=== PATIENT | male | born 1955 | race Caucasian/White ===

== ENCOUNTER → 2021-01-30 07:50 | Outpatient (BNVA) | payer MEDICARE, SELFPAY | PROVIDERS: Family Provider Family Medicine; PCP Family Medicine; Visit Provider Urology | DX: R31.0 Gross hematuria (principal) | CPT/HCPCS: 81003; 87086; 88112 ==

== ENCOUNTER 2021-02-13 12:55 | Outpatient (CLI) | payer MEDICARE, SELFPAY ==
--- NOTE | 2021-02-13 13:00 | CT_ITS ---
WS: [id number] CT ABDOMEN AND PELVIS WITH AND WITHOUT CONTRAST HISTORY: GROSS HEMATURIA TECHNIQUE: Unenhanced 5 mm axial imaging first performed through the abdomen. Post contrast imaging t hrough the abdomen and pelvis. Oral contrast has not been provided. Sagittal and coronal reformats a re submitted. All CT scans at [facility] use at least one of these dose optimization techniqu es: automated exposure control; mA and/or kV adjustment per patient size (includes targeted exams whe re dose is matched to clinical indication); or iterative reconstruction. CONTRAST: Visipaque 320; 95 mL IV. DLP: 3842.4 mGy.cm COMPARISON: 10/10/2006 Very tiny peripheral calcifications within the lung bases are similar to prior studies. Heart size is normal. Small hiatal hernia. Mild hepatic steatosis. Normal bowel duct and normal portal vein. Gallbladder, pancreas, spleen and a drenal glands are normal. Mild atherosclerotic plaque within the aorta with no aneurysm. RIGHT kidney: 10.2 cm in length. There is a linear calcification within the calyx the mid kidney rain uring 7 mm. Normal enhancement of the kidney. No hydronephrosis or hydroureter. No uroepithelial lesi ons. The contrast is not yet excreted from the kidney. LEFT kidney: 11.6 cm in length. No calcification or obstruction. No enhancing mass. There is a 4 mm c alcification at the LEFT UV junction but not causing any significant obstruction. No adenopathy or ascites. No GI tract obstruction. The appendix has been surgically removed. Urinary bladder is well distended. Very slight encroachment of the bladder by the prostate gland. No adenopat hy or fluid in the pelvis. Mild degenerative disc disease at L4-5 and L5-S1 with hypertrophic endplate osteophytes. CT/CT abdomen pelvis wo/w [id number] IMPRESSION: 1. 4 mm calcification at the LEFT UV junction. Calcification is not causing a significant obstruction of the ureter. 2. No solid renal mass. 3. Status post appendectomy.
[2021-02-13 14:03] LABS: Blood Urea Nitrogen 20 mg/dL (8-23); Glomerular Filtration Rate 50.9 mL/min (90-130)
[2021-02-13] MEDS: iodixanol 320 mg/mL 100mL Btl IV (14:30)
== END 2021-02-13 12:56 | disposition home or self-care (01) ==
LOC: RAD 12:57
PROVIDERS: PCP Family Medicine; Visit Provider Urology
DX: R31.0 Gross hematuria (principal); N20.1 Calculus of ureter; Q42.8 Congenital absence, atresia and stenosis of other parts of large intestine
CPT/HCPCS: 74178; 81003; 82565; 84520

== ENCOUNTER → 2021-07-19 09:48 | Outpatient (BNVA) | payer MEDICARE, SELFPAY | PROVIDERS: PCP Family Medicine; Visit Provider Registered Nurse | DX: E78.5 Hyperlipidemia, unspecified (principal); I10 Essential (primary) hypertension; I25.10 Atherosclerotic heart disease of native coronary artery without angina pectoris; R31.0 Gross hematuria; Z87.442 Personal history of urinary calculi; Z12.5 Encounter for screening for malignant neoplasm of prostate | CPT/HCPCS: 80053; 80061; 85025; G0103 ==

== ENCOUNTER 2021-10-17 13:35 | Outpatient (CLI) | payer MEDICARE, SELFPAY ==
--- NOTE | 2021-10-17 13:15 | XR_ITS ---
WS: [id number] Exam: XR KUB [id number] Date/Time of Exam: 10/17/2021 1:45 PM Reason For Exam: STONES No bowel obstruction or free air. Visualized organ margins are intact. Bony structures appear normal. XR/XR KUB [id number] IMPRESSION: 1. No acute abdominal finding.
== END 2021-10-17 13:36 | disposition home or self-care (01) ==
PROVIDERS: PCP Registered Nurse; Visit Provider Nurse Practitioner Family
DX: R10.9 Unspecified abdominal pain (principal); N20.0 Calculus of kidney; R31.0 Gross hematuria
CPT/HCPCS: 74018; 81003; 99213

== ENCOUNTER 2021-11-08 14:35 | Outpatient (CLI) | payer MEDICARE, SELFPAY ==
--- NOTE | 2021-11-08 16:00 | CTR_ITS ---
PROCEDURE INFORMATION: Exam: CT Abdomen And Pelvis Without Contrast Exam date and time: 11/08/2021 2:46 PM Age: 66 years old Clinical indication: Pain and condition or disease; Kidney or ureter condition; Calculus (stone) in kidney; Abdominal pain; Flank; Right; Prior surgery; Surgery type: Appy; Additional info: Right flank pain, CT abd/pel wo contrast on 10/24/21 prior to his appt in clinic TECHNIQUE: Imaging protocol: Computed tomography of the abdomen and pelvis without contrast. Radiation optimization: All CT scans at this facility use at least one of these dose optimization techniques: automated exposure control; mA and/or kV adjustment per patient size (includes targeted exams where dose is matched to clinical indication); or iterative reconstruction. COMPARISON: CT abdomen pelvis wo/w [id number] 02/13/2021 2:28 PM RADIATION DOSE METRICS: Total DLP (mGy-cm): 1308.21 FINDINGS: Liver: There is a diffuse decrease in hepatic parenchymal density, consistent with mild fatty infiltration. There is no focal abnormality within the liver. Gallbladder and bile ducts: The gallbladder is normal. Pancreas: The pancreas is normal. Spleen: The spleen is normal. Adrenal glands: The adrenal glands are normal. Kidneys and ureters: There is a 4 x 5 x 11 mm sized stone in the distal right ureter proximally 1.5 cm above the right ureterovesical junction. Stone measures up to proximally 1400 Hounsfield units and may be visible on the hobbies and crafts sales representative image. Stomach and bowel: There is no evidence of colitis/diverticulitis. Appendix: Not identified Intraperitoneal space: There is no evidence of free intraperitoneal fluid. Vasculature: There is no evidence of an abdominal aortic aneurysm. Lymph nodes: There is no evidence of lymphadenopathy. Urinary bladder: Unremarkable as visualized. Reproductive: The prostate gland demonstrates nonspecific parenchymal calcifications. The prostate demonstrates mild nonspecific enlargement. The seminal vesicles are normal. Bones/joints: The lumbar spine demonstrates moderate degenerative changes at multiple levels. Soft tissues: There are small bilateral inguinal hernias containing only fat. CT/CT kidney stone [id number] IMPRESSION: 1. Stone in the distal right ureter as described. 2. Fatty liver
== END 2021-11-08 14:36 | disposition home or self-care (01) ==
PROVIDERS: PCP Registered Nurse; Visit Provider Nurse Practitioner Family
DX: R10.9 Unspecified abdominal pain (principal); K76.0 Fatty (change of) liver, not elsewhere classified; N20.1 Calculus of ureter; R31.0 Gross hematuria
CPT/HCPCS: 74176; 81003; 99213

== ENCOUNTER 2021-11-18 06:53 | Emergency (ER) | payer MEDICARE, SELFPAY ==
[2021-11-18] VITALS (11 sets, daily range): BP systolic 131–175; BP diastolic 67–92; PULSE 61–76; RESP 13–18; TEMP 36.5; O2SAT 95–97; BMI 33.0
--- NOTE | 2021-11-18 07:21 | PC.NURSE ---
pt reports he hasn't been able to urinate since yesterday evening. reports he is scheduled for surgery due to kidney stone that is too big to pass.
--- NOTE | 2021-11-18 07:23 | ED_ITS ---
HPI - Male Genitourinary General: Chief complaint: Urogenital-Male Stated complaint: Abd pain and lower back pain Time Seen by Provider: 11/18/21 07:15 History of Present Illness: This patient is a 66 year old male presenting with right sided flank pain and suprapubic pain. He has not been able to urinate since 6 pm last night. He has a large kidney stone on the right and is scheduled to have a stent by Dr. Lala tomorrow. He had not been having any pain until last night when he had a sneezing fit. After that he started having the kidney stone pain and was no longer able to urinate. No fever. He had been having pain, sweating, and has been unable to sleep due to the discomfort. He is not enthused about having a catheter placed. Other medical history is significant for CAD with stents placed years ago . Relieving factors: none Exacerbating factors: none Associated symptoms: Deny nausea or vomiting Review of Systems General: Reports: 10 or more systems reviewed and unremarkable except in HPI and below Const: Reports: diaphoresis; Denies: fever(s), chills, fatigue or malaise Eyes: Denies: change in vision ENMT: Denies: odynophagia Card: Denies: chest pain or swelling of feet/ankles Resp: Denies: dyspnea, productive cough or non-productive cough GI: Denies: abdominal pain, nausea or vomiting : Reports: difficulty urinating, urinary urgency and urinary dribbling Musc: Denies: neck pain or back pain Skin/Breast: Denies: rash Neuro: Denies: headache(s), numbness in extremities or weakness in extremities Lee/Lymph: Denies: easy bruising or easy bleeding PFSH ED PFSH: Medical History Calculus of distal left ureter Coronary artery disease Gross hematuria History of kidney stones Hyperlipidemia Hypertension Family History Mother Hypertension Father , atage 78 Dementia Social History Smoking and tobacco status: never smoked Alcohol intake: never Lives independently: Yes Household members: spouse and family Marital status: Current occupational status: employed 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 [employer] History of recent travel: No Physical Exam Const: COMMON NORMALS: no acute distress, patient oriented x3, no limitations and alert GENERAL APPEARANCE: cooperative and comfortable HENMT: HEAD & SCALP: normal to inspection FACE & SINUS: normal facial exam Eye: GENERAL EYE: appearance normal, both eyes and all related structures Neck/C-Spine: COMMON NORMALS: supple, no meningeal signs and no JVD Chest: COMMONS NORMALS: normal inspection of the chest Resp: COMMON NORMALS: normal respiratory effort, No use of accessory muscles and clear to auscultation bilaterally AUSCULTATION: clear to auscultation b ilaterally Cardio: COMMON NORMALS: no JVD, regular rate, regular rhythm and No murmurs present (Cardio) RATE: regular rate RHYTHM: regular rhythm GI: INSPECTION: Yes normal to inspection AUSCULTATION: Yes normoactive bowel sounds PALPATION: Yes Tenderness to palpation present (GI) (suprapubic) Details: RLQ and RUQ and Yes Bladder palpation abnormal Details: distended and tender : BLADDER/KIDNEY EXAM: Yes Bladder palpation abnormal Back/Pelvis: COMMON NORMALS: thoracic and lumbar spine normal to inspection Extremity: COMMON NORMALS: normal to inspection Neuro: COMMON NORMALS: patient oriented x3, moves all extremities, no focal motor deficits and no sensory deficits noted SENSORIUM/ORIENTATION: Yes alert MENINGEAL SIGNS: Yes no meningeal signs Psych: COMMON NORMALS: mental status grossly normal, cooperative and normal affect Skin: COMMON NORMALS: no rashes or lesions noted and turgor normal GENERAL SKIN EXAM: no rashes or lesions noted and turgor normal Course Vital Signs: Vital signs: Vital Signs Temperature 97.7 F 11/18/21 07:02 Pulse Rate 65 11/18/21 09:34 Respiratory Rate 16 11/18/21 09:40 Blood Pressure 143/76 11/18/21 09:34 Pulse Oximetry 96 11/18/21 09:40 Oxygen Delivery Me thod 11/18/21 07:[address] [facility] - Male Medical Decision Making Urinary retention for 13 hours - patient hesitant to have a catheter, but obvious is in need of one. Will check UA, CBC, CMP for signs of kidney injury, infection. If catheter doesn't completely resolve his pain - will get imaging to locate the stone and consult Dr. Lala. Surprisingly, patient did not have a large amount of urine in the bladder when the biswas was placed. He had no change in pain after the catheter was placed an d was given IV morphine and zofran. He had good relief with that and wanted to go home. CT showed mod to severe hydro and his creatinine is slightly higher than baseline. Discussed with Dr. Lala. Patient will go home with meds for pain and nausea. He insisted on having the catheter out and he understands that he still might have urinary retention, as the stone is still in place. Lab Data : 11/18/21 07:42 11/18/21 07:42 Radiology Impressions Abdomen/Pelvis CT 11/18/21 08:55 IMPRESSION: 1. Obstructive stone in the distal right ureter measuring 0.5 x 1.1 cm. There is moderate to severe right hydronephrosis and hydroureter with perinephric stranding. Punctate nonobstructive left renal stones. 2. The bladder wall is thickened. Considerations include underdistention, partial bladder outlet obstruction or cystitis. Correlate with urinalysis. 3. Hepatomegaly with hepatic steatosis and mild periportal lymphadenopathy. 4. Solid pulmonary nodules measuring up to 3.2 mm. As per Fleischner Society 2017 guidelines for follow-up and management of pulmonary nodules: For patients at low risk (minimal or absent history of smoking and of other known risk factors), no routine follow-up. For patient at high risk (history of smoking or of other known risk factors), recommend optional CT at 12 months. 5. Cardiomegaly with coronary artery disease. 6. Small hiatal hernia. Laboratory Results WBC 9.2 10^3/uL (4.0-10.0) 11/18/21 07:42 RBC 4.40 10^6/uL (4.1-5.3) 11/18/21 07:42 Hgb 13.4 g/dL (11.7-16.6) 11/18/21 07:42 Hct 40.4 % (42.0-52.0) L 11/18/21 07:42 MCV 91.8 fl (80-94) 11/18/21 07:42 MCH 30.5 pg (28.0-34.0) 11/18/21 07:42 MCHC 33.2 g/dL (30.0-36.0) 11/18/21 07:42 RDW 12.9 % (12.1-15.1) 11/18/21 07:42 Plt Count 332 10^3/cmm (130-400) 11/18/21 07:42 MPV 10.3 fL (7.4-10.4) 11/18/21 07:42 Neut % (Auto) 80.9 % 11/18/21 07:42 Lymph % (Auto) 11.7 % 11/18/21 07:42 Harris % (Auto) 5.7 % 11/18/21 07:42 Eos % (Auto) 0.8 % 11/18/21 07:42 Baso % (Auto) 0.5 % 11/18/21 07:42 Neut # (Auto) 7.47 10^3/uL (1.8-7.7) 11/18/21 07:42 Lymph # (Auto) 1.1 10^3/uL (0.8-4.8) 11/18/21 07:42 Harris # (Auto) 0.5 10^3/uL (0.2-0.9) 11/18/21 07:42 Eos # (Auto) 0.1 10^3/uL (0.0-0.8) 11/18/21 07:42 Baso # (Auto) 0.1 10^3/uL (0.0-0.1) 11/18/21 07:42 Nucleated RBC % (auto) 0 % 11/18/21 07:42 Nucleated RBCs # 0.0 /100WBC 11/18/21 07:42 Sodium 142 mmol/L (136-145) 11/18/21 07:42 Potassium 4.2 mmol/L (3.5-5.1) 11/18/21 07:42 Chloride 106 mmol/L (98-107) 11/18/21 07:42 Carbon Dioxide 24 mmol/L (22-29) 11/18/21 07:42 Anion Gap 16.2 (5-19) 11/18/21 07:42 BUN 21 mg/dL (8-23) 11/18/21 07:42 Creatinine 1.7 mg/dL (0.7-1.2) H 11/18/21 07:42 GFR Calculation 40.7 mL/min (90-130) L 11/18/21 07:42 Glucose 107 mg/dL (65-115) 11/18/21 07:42 Calculated Osmolality 297 mOsm/kg (285-295) H 11/18/21 07:42 Calcium 9.0 mg/dL (8.5-10.5) 11/18/21 07:42 Total Bilirubin 0.2 mg/dL (0.15-1.2) 11/18/21 07:42 AST 17 U/L (0-40) 11/18/21 07:42 ALT 17 U/L (0-41) 11/18/21 07:42 Alkaline Phosphatase 49 U/L (40-130) 11/18/21 07:42 Total Protein 6.9 g/dL (6.6-8.7) 11/18/21 07:42 Albumin 4.3 g/dL (3.5-5.2) 11/18/21 07:42 Globulin 2.6 g/dL (1.3-4.6) 11/18/21 07:42 Urine Color Yellow (Yellow) 11/18/21 08:30 Urine Appearance Cloudy (CLEAR) 11/18/21 08:30 Urine pH 5 (5-7) 11/18/21 08:30 Ur Specific Vincent 1.030 (1.005-1.030) 11/18/21 08:30 Urine Protein 1+ (Negative) H 11/18/21 08:30 Urine Glucose (UA) Norm (Normal) 11/18/21 08:30 Urine Ketones 1+ (Negative) H 11/18/21 08:30 Urine Blood 3+ (Negative) H 11/18/21 08:30 Urine Nitrate Negative (Negative) 11/18/21 08:30 Urine Bilirubin Neg (Negative) 11/18/21 08:30 Urine Urobilinogen 1 mg/dL (Negative) H 11/18/21 08:30 Ur Leukocyte Esterase Trace (Negative) H 11/18/21 08:30 Urine RBC Too numerous to cnt /hpf (0-2) H 11/18/21 08:30 Urine WBC 0-4 /hpf (0-5) H 11/18/21 08:30 Ur Squamous Epith Cells 0-4 /hpf (0-5) H 11/18/21 08:30 Calcium Oxalate Crystal 0-4 /hpf H 11/18/21 08:30 Amorphous Sediment Not Reportable 11/18/21 08:30 Urine Bacteria 2+ /hpf (NONE) H 11/18/21 08:[address] Abd/Pel: My impression: large stone distal right ureter with hydronephrosis Discharge Plan Discharge Patient Disposition: Home Clinical Impression: Right ureteral calculus, Right renal stone, Acute urinary retention Condition: Stable Prescriptions: New oxycodone 5 mg tablet 5 mg PO Q4H PRN (Reason: pain) Qty: 10 0RF ondansetron 4 mg tablet,disintegrating 4 mg PO TID PRN (Reason: nausea and vomiting) 3 Days Qty: 10 0RF No Action aspirin 81 mg tablet,delayed release (DR/EC) 81 mg PO DAILY fenofibrate 54 mg tablet 54 mg PO DAILY 90 Days Qty: 90 1RF losartan 50 mg tablet 50 mg PO DAILY 90 Days Qty: 90 1RF lovastatin 10 mg tablet 10 mg PO DAILY 90 Days Qty: 90 1RF nitroglycerin [Nitrostat] 0.4 mg tablet, sublingual 0.4 mg sublingual Q5M PRN (Reason: chest pain) 30 Days Qty: 30 0RF Rx Instructions: do not exceed 3 doses per episode metoprolol succinate 25 mg tablet extended release 24 hr 25 mg PO BID 90 Days Qty: 180 0RF clopidogrel 75 mg tablet 75 mg PO DAILY 90 Days Qty: 90 0RF Rx Instructions: switched pharmacy's called in refills to [facility]. Discharge Orders: Discharge ED (Routine); Ordered 11/18/21 Ordered By: Jessica Quinteros Referrals: Sarthak Rivas, GRIDDLE ATTENDANT [Primary Care Provider] - Discharge Diet: As Directed Discharge Activity: Resume usual activity Patient Instructions: Kidney Stones (ED), Biswas Catheter Placement and Care (ED), Opioid Safety Activity Restrictions/Additional Instructions: Follow previous directions to prepare for your procedure. Use the pain medicine as needed. You may also take tylenol with that medication. Use the nausea medicine as needed as well. Coding Level of Care Code ED Facepiece Line Supervisor for Tia Fwd Exam Comprehensive
[2021-11-18 08:00] LABS: Basophils # 0.1 10^3/uL (0.0-0.1); Basophils % 0.5 %; Eosinophils # 0.1 10^3/uL (0.0-0.8); Eosinophils % 0.8 %; Hematocrit 40.4 % (42.0-52.0); Hemoglobin 13.4 g/dL (11.7-16.6); Lymphocytes # 1.1 10^3/uL (0.8-4.8); Lymphocytes % 11.7 %; Mean Corpuscular HGB Conc 33.2 g/dL (30.0-36.0); Mean Corpuscular Hemoglobin 30.5 pg (28.0-34.0); Mean Corpuscular Volume 91.8 fl (80-94); Mean Platelet Volume 10.3 fL (7.4-10.4); Monocytes # 0.5 10^3/uL (0.2-0.9); Monocytes % 5.7 %; Neutrophils # 7.47 10^3/uL (1.8-7.7); Neutrophils % 80.9 %; Nucleated Red Blood Cells % 0 %; Platelet Count 332 10^3/cmm (130-400); Red Cell Distribution Width 12.9 % (12.1-15.1); White Blood Count 9.2 10^3/uL (4.0-10.0)
[2021-11-18] MEDS: sodium chloride 0.9% 1,000 ML 999 ML IV (08:21)
[2021-11-18 08:22] LABS: Alanine Aminotransferase 17 U/L (0-41); Albumin Level 4.3 g/dL (3.5-5.2); Alkaline Phosphatase 49 U/L (40-130); Anion Gap 16.2 (5-19); Aspartate Amino Transferase 17 U/L (0-40); Blood Urea Nitrogen 21 mg/dL (8-23); Carbon Dioxide 24 mmol/L (22-29); Chloride 106 mmol/L (98-107); Globulin 2.6 g/dL (1.3-4.6); Glomerular Filtration Rate 40.7 mL/min (90-130); Glucose 107 mg/dL (65-115); Osmolality Calculated 297 mOsm/kg (285-295); Potassium 4.2 mmol/L (3.5-5.1); Sodium 142 mmol/L (136-145); Total Bilirubin 0.2 mg/dL (0.15-1.2); Total Protein 6.9 g/dL (6.6-8.7)
[2021-11-18 08:55] LABS: Urine Color Yellow (Yellow)
--- NOTE | 2021-11-18 08:55 | CTR_ITS ---
PROCEDURE INFORMATION: Exam: CT Abdomen And Pelvis Without Contrast Exam date and time: 11/18/2021 9:11 AM Age: 66 years old Clinical indication: Right and left flank abdominal pain. TECHNIQUE: Imaging protocol: Computed tomography of the abdomen and pelvis without contrast. Radiation optimization: All CT scans at this facility use at least one of these dose optimization techniques: automated exposure control; mA and/or kV adjustment per patient size (includes targeted exams where dose is matched to clinical indication); or iterative reconstruction. COMPARISON: CT kidney stone [id number] 11/08/2021 2:46 PM RADIATION DOSE METRICS: Total DLP (mGy-cm): 929.05 FINDINGS: Lungs: Solid pulmonary nodule in the right middle lobe measuring 2.9 mm (image 2). Solid pulmonary nodule in the right lower lobe measures 3.2 mm. There are multiple calcified granulomata at the lung bases. Coronary arterial calcifications are seen. The heart is enlarged. No pericardial effusion. Small hiatal hernia. Liver: The liver is enlarged measuring 18.8 cm. There is diffuse hepatic steatosis. Gallbladder and bile ducts: The gallbladder is unremarkable. Pancreas: The pancreas is unremarkable. Spleen: The spleen is unremarkable. Adrenal glands: The adrenal glands are unremarkable. Kidneys and ureters: There is an obstructive stone in the distal right ureter measuring 0.5 x 1.1 cm. There is moderate to severe right hydronephrosis and hydroureter with perinephric stranding. Punctate nonobstructive left renal stones. Stomach and bowel: The stomach and small bowel are unremarkable. The colon is unremarkable. Appendix: The appendix is not identified. Intraperitoneal space: No free intraperitoneal air. Vasculature: No abdominal aortic aneurysm. Lymph nodes: A periportal lymph node measures 1.0 x 2.1 cm. Urinary bladder: The bladder wall is thickened. Considerations include underdistention, partial bladder outlet obstruction or cystitis. Correlate with urinalysis. Reproductive: The prostate measures 3.9 x 3.9 cm. Bones/joints: There and moderate degenerative changes are seen in the lumbar spine. No acute fracture is seen. Soft tissues: Small fat containing inguinal and umbilical hernias. CT/CT kidney stone [id number] IMPRESSION: 1. Obstructive stone in the distal right ureter measuring 0.5 x 1.1 cm. There is moderate to severe right hydronephrosis and hydroureter with perinephric stranding. Punctate nonobstructive left renal stones. 2. The bladder wall is thickened. Considerations include underdistention, partial bladder outlet obstruction or cystitis. Correlate with urinalysis. 3. Hepatomegaly with hepatic steatosis and mild periportal lymphadenopathy. 4. Solid pulmonary nodules measuring up to 3.2 mm. As per Fleischner Society 2017 guidelines for follow-up and management of pulmonary nodules: For patients at low risk (minimal or absent history of smoking and of other known risk factors), no routine follow-up. For patient at high risk (history of smoking or of other known risk factors), recommend optional CT at 12 months. 5. Cardiomegaly with coronary artery disease. 6. Small hiatal hernia.
[2021-11-18 08:56] LABS: Add Urine Microscopic? YES; Bilirubin Urine Neg (Negative); Blood Urine 3+ (Negative); Glucose Urine UA Norm (Normal); Ketones Urine 1+ (Negative); Leukocyte Esterase Urine Trace (Negative); Nitrate Urine Negative (Negative); Protein Urine 1+ (Negative); Urine Appearance Cloudy (CLEAR); Urobilinogen Urine 1 mg/dL (Negative); pH Urine 5 (5-7)
[2021-11-18 08:57] LABS: RBC Urine TOO NUMEROUS TO CNT /hpf (0-2); WBC Urine 0-4 /hpf (0-5)
[2021-11-18 08:59] LABS: Bacteria Urine 2+ /hpf; Calcium Oxalate Crystals Urine 0-4 /hpf; Squamous Epithelial Cell Urine 0-4 /hpf (0-5)
[2021-11-18 09:00] LABS: Add Urine Culture? Yes
[2021-11-18] MEDS: ondansetron 2 mg/ML SDV 2 mL 4 MG IVP (09:36)
[2021-11-18] MEDS: morphine 4 mg/mL SDV 1 mL IVP (09:40)
--- NOTE | 2021-11-18 11:41 | PC.NURSE ---
pt reports he does not want the 2nd dose of morphine, that his pain has improved a lot. requesting nurse to remove biswas catheter prior to discharge. ED provider to bedside to educate pt on risks of removing biswas and potentially will need to return to ED due to unable to urinate. pt verbalized understand and continues with request for biswas removal and that he will return to ED if unable to urinate.
--- NOTE | 2021-11-19 05:17 | W.PM.OPSUD ---
Surgery/Procedure H&P Update DATE OF PROCEDURE: November 19, 2021 DATE H&P PERFORMED: 11/08/21 CHANGES TO PREVIOUS DOCUMENTATION: In ED yesterday with increased pain. CT showed new hydro and slightly distal progression. No UTI
== END 2021-11-18 12:03 | disposition home or self-care (01) ==
PROVIDERS: Emergency Provider Emergency Medicine; PCP Registered Nurse
DX: N13.2 Hydronephrosis with renal and ureteral calculous obstruction (principal); R33.9 Retention of urine, unspecified; Z79.82 Long term (current) use of aspirin; Z79.02 Long term (current) use of antithrombotics/antiplatelets
CPT/HCPCS: 51702; 51798; 74176; 80053; 81001; 85025; 87086; 96374; 96375; 99285; J2270; J2405; J7030

== ENCOUNTER 2021-11-19 06:43 | Day surgery (SDC) | payer MEDICARE, SELFPAY ==
[2021-11-16 10:15] VITALS: BMI 30.7
[2021-11-19] VITALS (9 sets, daily range): BP systolic 139–175; BP diastolic 78–101; PULSE 71–78; RESP 16–18; TEMP 36.2–36.5; O2SAT 93–100
--- NOTE | 2021-11-19 06:50 | W.PM.OPSUD ---
Surgery/Procedure H&P Update DATE OF PROCEDURE: November 19, 2021 DATE H&P PERFORMED: 11/08/21 H&P UPDATE INFORMATION: I have reviewed H&P completed within last 30 days, I have examined patient prior to procedure, Changes to prior documentation as noted here and H&P is in [facility] [place] EMR on date indicated PRIMARY INDICATION FOR PROCEDURE: In ER yesterday with severe right flank pain. Stone had moved slightly more distal with new onset of obstruction. Doing better today. No fever or chills. Stone easily visualized on KUB today. Proceed with planned ESWL and stent possible retrograde ureteroscopy PLANNED PROCEDURE: Operation Date: 11/19/21 08:10 Proposed Procedures p CYSTOSCOPY,RIGHT STENT EXTRACORPOREAL SHOCKWAVE LITHOTRIPSY RETROGRADE [id number] MODIFIER 26,N20.1,R31.0(Not Applicable) - Tato Lala MD s Retrograde Pyelogram(Right) - Tato Lala MD s ESWL(Right) - MD maggie Moscoso Ureteral Stent Placement(Right) - Tato Lala MD
--- NOTE | 2021-11-19 06:57 | XR_ITS ---
WS: [id number] Exam: XR KUB [id number] Date/Time of Exam: 11/19/2021 7:02 AM Reason For Exam: Preop ESWL right distal ureteral stone Comparison 10/17/2021. Right pelvic calcifications are noted unchanged since prior study. No bowel obstruction or free air. No sign of organ enlargement. Bony elements are intact. XR/XR KUB [id number] IMPRESSION: 1. Right pelvic calcifications unchanged. 2. No acute abdominal finding.
[2021-11-19] MEDS: sodium chloride 0.9% 1,000 ML 30 ML IV (07:26)
--- NOTE | 2021-11-19 08:16 | ANES.PREANE2 ---
Pre-Anesthetic Assessment Height/Weight: Height 1.8 m Weight 99.79 kg Temp Pulse Resp BP Pulse Ox O2 Del Method 97.7 F 78 16 143/95 95 11/19/21 07:18 11/19/21 07:18 11/19/21 07:18 11/19/21 07:18 11/19/21 07:18 11/19/21 07:18 Preop Diagnosis: Large right distal ureteral stone Operation Date: 11/19/21 08:10 Proposed Procedures p CYSTOSCOPY,RIGHT STENT EXTRACORPOREAL SHOCKWAVE LITHOTRIPSY RETROGRADE [id number] MODIFIER 26,N20.1,R31.0(Not Applicable) - Tato Lala MD s Retrograde Pyelogram(Right) - MD maggie Moscoso ESWL(Right) - Tato Lala MD s Ureteral Stent Placement(Right) - Tato Lala MD Familial anesthetic complications: None Was Beta Inessa taken within 24 hours: Yes Was Clonidine taken within 24 hours: N/A Last intake: Intake Last Liquid Date 11/18/21 Last Liquid Time 18:00 Last Solid Date 11/17/21 Last Solid Time 23:30 Social Tobacco (chews) and No alcohol Exam alert, oriented x 3, clear to auscultation bilaterally and regular rate & rhythm Airway Mallampati: Class IV Dentition: full Comments: Comments: large neck and tongue, poor mouth opening, receding mandbile Pulmonary None reported CV/HEM Coronary Artery Disease (stents > 1 year ago - plavix) and Hypertension Hepatic None reported GI None reported Metabolic Hyperlipidemia [facility] None reported Anesthetic Plan ASA status: 3 Anesthesia: General Risk of > 500 ml blood loss (7ml/kg in children): No Medications/Allergies Home Medications Medication Instructions Recorded Confirmed Last Taken Type aspirin 81 mg tablet,delayed 81 mg PO DAILY 01/16/21 11/16/21 11/16/21 07:00 History release fenofibrate 54 mg tablet 54 mg PO DAILY 90 days #90 tabs 07/19/21 11/19/21 11/17/21 Rx losartan 50 mg tablet 50 mg PO DAILY 90 days #90 tabs 07/19/21 11/19/21 11/17/21 Rx lovastatin 10 mg tablet 10 mg PO DAILY 90 days #90 tabs 07/19/21 11/19/21 11/17/21 Rx nitroglycerin 0.4 mg sublingual 0.4 mg sublingual Q5M PRN chest 07/19/21 11/19/21 Unknown Rx tablet (Nitrostat) pain 30 days #30 tabs metoprolol succinate 25 mg 25 mg PO BID 90 days #180 tabs 10/29/21 11/19/21 11/17/21 Rx tablet,extended release 24 hr clopidogrel 75 mg tablet 75 mg PO DAILY 90 days #90 tabs 11/02/21 11/16/21 11/10/21 Rx ondansetron 4 mg disintegrating 4 mg PO TID PRN nausea and 11/18/21 11/19/21 11/17/21 Rx tablet vomiting 3 days #10 tabs oxycodone 5 mg tablet 5 mg PO Q4H PRN pain #10 tabs 11/18/21 11/19/21 11/17/21 Rx Allergies Allergy/AdvReac Type Severity Reaction Status Date / Time No Known Allergies Allergy Verified 11/08/21 15:40 Current Medications Generic Name Dose Route Start Last Admin Trade Name Freq PRN Reason Stop Dose Admin Sodium Chloride 1,000 mls @ 30 mls/hr 11/19/21 07:00 11/19/21 07:26 Sodium Chloride 0.9% IV 11/20/21 06:59 30 mls/hr .Q24H FABIAN Administration PFSH Anesthesia Medical History Calculus of distal left ureter Coronary artery disease Gross hematuria History of kidney stones Hyperlipidemia Hypertension Family History Mother Hypertension Father , atage 78 Dementia Social History Smoking and tobacco status: never smoked Alcohol intake: never Lives independently: Yes Household members: spouse and family Marital status: Current occupational status: employed 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
--- NOTE | 2021-11-19 08:26 | P.OP_ITS ---
Operative Report Date of procedure: November 19, 2021 Pre-op diagnosis: Large RIGHT distal ureteral stone Post-op diagnosis: Large RIGHT distal ureteral stone Procedure done: 1. Right EXTRACORPOREAL shockwave lithotripsy, distal ureteral stone 2. Cystoscopy, RIGHT: Retrograde ureteropyelogram, ureteroscopy, laser, stent Implants: Right ureteral stent: 7 Brazilian by 28 cm double-pigtail without string Specimens removed/disposition: Stone fragments Pathology: Stone fragments Surgeon: [employer] Conservation Representative: Lithotripsy remote sensing technician: Jean Carmona Urine output: Not measured Complications: None Findings: 1. Anesthesia: General 2. Condition: Normal 3. Disposition: PACU 4. Stone easily identified with fluoroscopy. 3000 shocks administered with apparent fragmentation but there still appeared to be possibly some fragments too large to pass remaining. For this reason a cystoscopy retrograde ureteroscopy laser lithotripsy of remaining fragments was performed. There was a lot of inflammatory changes in the ureter for that reason a stent was left indwelling. We will plan on leaving the stent in for least 2 weeks for healing of this inflamed area Brief History: Mr. Reveles is a very pleasant 66-year-old white male recently diagnosed with hematuria and work-up demonstrated a large stone in the right distal ureter without obstructive changes. He wanted to see if he could pass a stone but failed to do so. Was scheduled for ESWL and stent for today. Yesterday he developed severe right renal colic which was new for the stone. CT scan in the emergency department demonstrated new onset of obstructive changes and the stone had moved slightly distally. He did experience some increasing lower urinary tract symptoms with its new position. Was able to be managed conservatively and is present today for planned procedure of cystoscopy stent ESWL retrograde Procedure: After routine preoperative evaluation examination and obtaining of informed consent he was taken to the operating suite on 11/19/2021 where general anesthesia was administered without difficulty after appropriate timeout was performed, SCDs confirmed to be functioning, preoperative antibiotics administered, beta-марина protocol confirmed. Positioned on the Dornier unit in supine position. The stone was brought into the focal point utilizing biplanar fluoroscopy. Stone was easily identified. Patient was placed in slight Trendelenburg. Shockwave was initiated on the more proximal aspect of the stone and at a low intensity and a rate of 60. The intensity and right were slowly increased. A total of 3000 shocks were administered with position changes as indicated with real-time fluoroscopy. Some change was noted but what remained was not clear to be either a few larger fragments or just encapsulated cluster of small stones trapped in the ureter. Because this was not clear it was decided to proceed with retrograde and possible ureteroscopy. He was then repositioned in dorsolithotomy position paying careful attention to avoiding pressure points. 21 Brazilian cystoscope with 30 degree lens was introduced into urethra meatus and advanced into the bladder under videoscopy. The bladder was systematically examined. There was some blood coming out of the right ureteral orifice as expected. An 8 Brazilian cone-tip catheter was intubated into the right ureteral orifice for right retrograde ureteropyelogram: Contrast was injected which demonstrated normal distal ureter course and caliber with filling defect consistent with what was seen on the fluoroscopy. Proximal to that was still dilated. Flexible tip guidewire was easily advanced up the right ureter bypassing the area of treatment. The distal ureter was then dilated with a 15 Brazilian 4 cm balloon with proximal aspect of the balloon just below the level of the stone. A second guidewire was passed and then a 7 Brazilian offset semirigid ureteroscope was advanced over this wire to the level of the stone fragments and the wire was removed. Most of what was seen were smaller fragments but there appeared to be some larger fragments more proximally. A 365 ?m thulium superpulse laser fiber was utilized to fragment the larger pieces that remained enveloped by the ureter. They were completely fragmented and either flushed from the ureter or removed via grasping forceps. Contrast was then reinjected through the scope. And there was no extravasation. Could not identify any of the other filling defects. The ureteroscope was then removed. Cystoscope was then backloaded over the guidewire. A 7 Brazilian by 28 cm double-pigtail stent was advanced over the guidewire through the cystoscope into appropriate position as confirmed via fluoroscopy and cystoscopy. Stent was confirmed to be draining. Stone fragment were evacuated through the cystoscope Bladder was drained the procedure was completed. He tolerated procedure well without complications and was awakened in the operating room and returned to the recovery room in stable condition. PLANS: 1. Anticipate discharge from outpatient surgery 2. Maintain stent for at least 2 weeks to allow healing of the area where the stone was wedged. We will see him back about that time with a KUB and likely cystoscopy and stent removal.
[2021-11-19] MEDS: levofloxacin-dextrose 5 % 500 MG/100 ML PREMIX 100 MG IV (08:37)
--- NOTE | 2021-11-19 09:28 | SUR.OPER ---
OMNIPAQUE 350MGI/ML LOT [id number] EXP 08/23/24 10ML ADDED TO STERILE FIELD. 2ML USED
--- NOTE | 2021-11-19 11:11 | SUR.PHASEI ---
1111-patient is resting in pacu, simple mask removed on room air. No complaints of nausea or pain at this time.
[2021-11-19] MEDS: oxyCODONE 5 mg IR Tab/Cap PO (11:54)
--- NOTE | 2021-11-19 13:28 | ANE.PACU2 ---
Inpatient post-anesthesia follow up: Airway intact: Yes Vital signs: Temperature 97.1 F Pulse Rate 72 Respiratory Rate 16 Blood Pressure 139/92 Pulse Oximetry 96 Oxygen Delivery Me thod Room Air Oxygen Flow Rate 5 Fraction of Inspir ed Oxygen Hydration adequate: Yes Nausea and vomiting: No Pain level: 1 Mental status: Baseline
== END 2021-11-19 11:58 | disposition home or self-care (01) ==
PROVIDERS: PCP Registered Nurse; Visit Provider Urology
PROC: 0TJB8ZZ Inspection of Bladder, Via Natural or Artificial Opening Endoscopic (ICD-10-PCS; CPT 52000; principal; 2021-11-19 08:10)
PROC: (CPT 74420; 2021-11-19 08:10)
PROC: (CPT 50590; 2021-11-19 08:10)
PROC: (CPT 50605; 2021-11-19 08:10)
PROC: (CPT 50590; 2021-11-19 08:10)
DX: N20.1 Calculus of ureter (principal); I10 Essential (primary) hypertension; E78.5 Hyperlipidemia, unspecified; I25.10 Atherosclerotic heart disease of native coronary artery without angina pectoris; F17.220 Nicotine dependence, chewing tobacco, uncomplicated; Z79.02 Long term (current) use of antithrombotics/antiplatelets; Z79.82 Long term (current) use of aspirin; Z79.891 Long term (current) use of opiate analgesic; Z95.5 Presence of coronary angioplasty implant and graft
CPT/HCPCS: 50590; 52332; 74018; C2625; J1100; J1956; J2405; J2704; J2710; J3010; J3490; J7030

== ENCOUNTER 2021-12-06 09:51 | Outpatient (CLI) | payer MEDICARE, SELFPAY ==
--- NOTE | 2021-12-06 10:05 | XR_ITS ---
WS: [id number] KUB, AP view, 12/06/2021 Clinical Data: STONES Comparison: KUB, 11/19/2021 Findings: No abnormal intraabdominal masses or calcifications are seen. There is no dilatated small bowel or ev idence of obstruction. A right ureteral stent is in good position XR/XR KUB [id number] Impression: Right ureteral stent.
== END 2021-12-06 09:52 | disposition home or self-care (01) ==
LOC: RAD 09:53
PROVIDERS: PCP Registered Nurse; Visit Provider Urology
DX: Z87.442 Personal history of urinary calculi (principal)
CPT/HCPCS: 74018; 99024

== ENCOUNTER → 2021-12-28 11:28 | Outpatient (BNVA) | payer MEDICARE, SELFPAY | PROVIDERS: PCP Registered Nurse; Visit Provider Urology | DX: N20.1 Calculus of ureter (principal); Z96.0 Presence of urogenital implants | CPT/HCPCS: 52310; 99024 ==

== ENCOUNTER → 2022-01-03 09:35 | Outpatient (BNVA) | payer MEDICARE, SELFPAY | PROVIDERS: PCP Registered Nurse; Visit Provider Registered Nurse | DX: E78.5 Hyperlipidemia, unspecified (principal); I10 Essential (primary) hypertension; I25.10 Atherosclerotic heart disease of native coronary artery without angina pectoris | CPT/HCPCS: 80053 ==

== ENCOUNTER → 2022-01-10 09:12 | Outpatient (BNVA) | payer MEDICARE, SELFPAY | PROVIDERS: PCP Registered Nurse; Visit Provider Registered Nurse | DX: R73.9 Hyperglycemia, unspecified (principal) | CPT/HCPCS: 80053; 83036 ==

== ENCOUNTER 2022-04-09 13:59 | Outpatient (CLI) | payer MEDICARE, SELFPAY ==
--- NOTE | 2022-04-09 15:20 | XR_ITS ---
WS: [id number] KUB, AP view, 04/09/2022 Clinical Data: Renal Stone Comparison: KUB, 12/06/2021 Findings: No abnormal intraabdominal masses or calcifications are seen. There is no dilatated small bowel or ev idence of obstruction. Fecal material and bowel gas obscure detail over both kidneys. The right ureteral stent has been lyla rufino. XR/XR KUB [id number] Impression: Negative KUB.
== END 2022-04-09 14:00 | disposition home or self-care (01) ==
PROVIDERS: PCP Registered Nurse; Visit Provider Urology
DX: N20.0 Calculus of kidney (principal); Z87.442 Personal history of urinary calculi
CPT/HCPCS: 74018; 81003; 99213

== ENCOUNTER → 2022-06-25 09:18 | Outpatient (BNVA) | payer MEDICARE, SELFPAY | PROVIDERS: PCP Registered Nurse; Visit Provider Registered Nurse | DX: E78.5 Hyperlipidemia, unspecified (principal); I10 Essential (primary) hypertension; I25.10 Atherosclerotic heart disease of native coronary artery without angina pectoris | CPT/HCPCS: 80053; 80061; 85025 ==

== ENCOUNTER → 2023-08-13 09:39 | Outpatient (BNVA) | payer MEDICARE, SELFPAY | PROVIDERS: PCP Registered Nurse; Visit Provider Registered Nurse | DX: I10 Essential (primary) hypertension (principal); Z13.1 Encounter for screening for diabetes mellitus; E11.9 Type 2 diabetes mellitus without complications | CPT/HCPCS: 80053; 80061; 83036; 85025 ==

== ENCOUNTER 2023-09-01 07:09 | Outpatient (CLI) | payer MEDICARE, SELFPAY ==
--- NOTE | 2023-09-01 | ECG_ITS ---
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 Interpretive Statements NAME OF STUDY: LEXISCAN SESTAMIBI STRESS TEST INDICATION: [Chest Pain, ] Procedure: At the baseline, the blood pressure was 138/94 mmHg with a heart rate of 65 bpm. The electrocardiogram showed normal sinus rhythm, normal axis with normal ST and T's. The Lexiscan was infused over a period of 20 seconds. A total of 0.4 mg of Lexiscan was infused. The stress phase was continued for a total of 5 minutes. Heart rate was at the end of stress phase was 75 bpm and a blood pressure of 134/89 mmHg. The EKG at the peak infusion revealed normal sinus rhythm with no significant ST-T wave changes. Sestamibi was injected 20 seconds after the Lexiscan infusion. Blood pressure at the end of recovery phase was 143/91 mmHg with a heart rate of 71 bpm. Conclusion: 1. Normal EKG response to Lexiscan infusion 2. No Lexiscan induced chest pain or cardiac arrhythmia. 3. Normal blood pressure and heart rate response. 4. Sestamibi/sestamibi perfusion scan pending; see separate report. Electronically Signed On 09-08-2023 9:04:30 CDT by Mani Warren M.D. [email or web address]
[2023-09-01 07:33] VITALS: BMI 33.5
--- NOTE | 2023-09-01 07:39 | NMCV_ITS ---
NM kev perf SPECT r/s* [id number] Shantanu Reveles Age: 68 Gender: M : 1955 Exam Date: 09/01/2023 08:11 Ordering Phys: Sarthak Rivas WELDER EXPLOSION Technologist: JIMMY Davis Exam Location: [facility] Indications: CAD, SOB STRESS TEST Please see separate stress test report in [facility] for full findings IMAGE PROTOCOL Rest/Stress 1 Lexiscan Day Radiopharmaceutical Dose (mCi) Administration Site Administered by Rest: Tc-99m 10.4 IV JIMMY Davis Sestamibi Stress:Tc-99m 32.6 IV JIMMY Davis Sestamibi Rest: 01-Sep-2023 60 Discovery 630 Stress: 01-Sep-2023 30 Discovery 630 0.4mg Lexiscan. Images obtained in supine and prone position. SPECT RESULTS Technical Quality: Good Raw Data Analysis: Normal Image Corrections: No attenuation or motion correction applied Summed Stress Score: 5 Summed Rest Score: 1 Summed Difference Score: 4 PERFUSION FINDINGS There is a medium sized area of partially reversible perfusion defect seen in inferolateral and anterolateral suazo. This is consistent with small area of prior infarct with medium sized area of rohit-infarct ischemia in the left circumflex artery territory. FUNCTIONAL RESULTS (calculated via Gated SPECT) Stress Image LV EF (%): 70 Stress EDV (mL):79 TID: 1.14 Stress ESV (mL):24 FUNCTIONAL FINDINGS: There is normal left ventricular systolic function. IMPRESSIONS 1. Small area of prior infarct with medium sized area of rohit-infarct ischemia seen in the left circumflex artery territory. 2. LV systolic function is normal Mani Warren MD (Electronically Signed) Final Date: 01 September 2023 12:33 S
[2023-09-01] MEDS: regadenoson 0.4 Mg/5 ml Syringe 0.400000000000000022 MG IVP (08:54)
[2023-09-01 09:12] VITALS: BP 143/91; PULSE 73
== END 2023-09-01 07:10 | disposition home or self-care (01) ==
PROVIDERS: PCP Registered Nurse; Visit Provider Registered Nurse
DX: I25.10 Atherosclerotic heart disease of native coronary artery without angina pectoris (principal); R06.02 Shortness of breath; R94.39 Abnormal result of other cardiovascular function study
CPT/HCPCS: 36415; 78452; 93017; A9500; J2785

== ENCOUNTER → 2023-10-13 13:30 | Outpatient (BNVA) | payer MEDICARE, SELFPAY | PROVIDERS: PCP Registered Nurse; Visit Provider Internal Medicine Cardiovascular Disease | DX: R93.1 Abnormal findings on diagnostic imaging of heart and coronary circulation (principal); E78.2 Mixed hyperlipidemia; I10 Essential (primary) hypertension; I25.118 Atherosclerotic heart disease of native coronary artery with other forms of angina pectoris; Z87.442 Personal history of urinary calculi | CPT/HCPCS: 99205 ==

== ENCOUNTER 2023-10-27 16:41 | Outpatient (CLI) | payer MEDICARE, SELFPAY ==
[2023-10-27 17:23] LABS: Basophils % 0.5 %; Eosinophils # 0.1 10^3/uL (0.0-0.8); Hematocrit 44.2 % (37-53); Lymphocytes # 2.1 10^3/uL (0.8-4.8); Lymphocytes % 31.5 %; Mean Corpuscular HGB Conc 34.4 g/dL (30-55); Mean Corpuscular Hemoglobin 31.8 pg (27-33); Mean Corpuscular Volume 92.5 fl (82-101); Mean Platelet Volume 9.8 fL (7.4-10.4); Monocytes # 0.7 10^3/uL (0.2-0.9); Monocytes % 10.8 %; Neutrophils # 3.67 10^3/uL (1.8-7.7); Nucleated Red Blood Cells % 0 %; Platelet Count 302 10^3/cmm (157-399); Red Blood Count 4.78 10^6/uL (3.85-5.65); Red Cell Distribution Width 12.5 % (12.1-15.1); White Blood Count 6.66 10^3/uL (3.29-11.43)
[2023-10-27 17:43] LABS: INR 0.87 (0.8-1.2)
[2023-10-27 17:47] LABS: Troponin T (5th) Once 21 ng/L (0-15)
[2023-10-27 17:52] LABS: Anion Gap 20.1 (5-19); Blood Urea Nitrogen 17 mg/dL (8-23); Calcium 9.3 mg/dL (8.5-10.5); Carbon Dioxide 21 mmol/L (22-29); Chloride 106 mmol/L (98-107); Glomerular Filtration Rate 60.4 mL/min (90-130); Glucose 95 mg/dL (65-115); Osmolality Calculated 297 mOsm/kg (285-295); Potassium 4.1 mmol/L (3.5-5.1); Sodium 143 mmol/L (136-145)
== END 2023-10-27 16:42 | disposition home or self-care (01) ==
LOC: LAB 16:44
PROVIDERS: PCP Registered Nurse; Visit Provider Internal Medicine Cardiovascular Disease
DX: Z79.01 Long term (current) use of anticoagulants (principal); R06.02 Shortness of breath; I48.91 Unspecified atrial fibrillation; I31.9 Disease of pericardium, unspecified
CPT/HCPCS: 80048; 84484; 85025; 85610

== ENCOUNTER 2023-10-29 07:11 | Outpatient (CLI) | payer MEDICARE, SELFPAY ==
[2023-10-29] VITALS (26 sets, daily range): BP systolic 109–170; BP diastolic 75–108; PULSE 60–97; RESP 0–33; TEMP 36.6; O2SAT 94–99; BMI 32.6
--- NOTE | 2023-10-29 07:30 | XACV_ITS ---
Exam Room: 2 Ht: 180 cm Wt: 106 kg BSA: 2.34 m2 Gender: Male : 1955 Any Known Allergies: No known allergies Exam Priority: Routine Procedure(s): Procedure Description: Diagnostic procedure Procedure Description: PCI procedure Procedure Description: Drug Eluting Coronary Stent Procedure Description: PTCA Procedure Description: Miscellaneous Procedure Description: ACT Procedure Description: Pressure Wire David OCASIO; Diagnostic Cath Status: Elective Diagnostic Findings * INDICATION: Dyspnea on exertion/abnormal myocardial perfusion/ Chest pain (CCS class 3 angina). * Left Main has mild luminal irregularities. 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 No significant stenosis. * LAD has patent prior stents. At distal edge of mid LAD stent, patient has a moderate 60% stenosis. * Proximal Circumflex: subtotal 95-99% occlusion. This vessel extends into a medium to large sized OM 2 that has another 90 to 95% stenosis. Distal left circumflex artery has subtotal occlusion. * Ramus/High OM1 has subtotally occluded prior stent. Small sized artery. * Coronary angiography shows right dominance. PCI Status: Elective PCI Indication: Other Interventional Findings * Procedure detail: We engaged left main artery with XB 3.5 guide catheter. IV heparin was administered to maintain anticoagulation. iFR wire was advanced into distal LAD after normalization. iFR value of 0.96 was obtained that was nonischemic. We then proceeded with PCI of left circumflex artery into OM 2. 0.014 run-through guidewire was used to cross the stenosis and was placed in distal vessel. We predilated the stenosis with 2.5 x 20 mm semicompliant balloon. This was followed with placement of 3.0 x 38 mm resolute Shaniko drug-eluting stent. The stent was postdilated with 3.5 x 12 mm NC balloon at high pressure. We then advanced the run-through wire into the small to medium sized OM 1. We dilated the prior stent with a 3.5 x 12 mm balloon at low pressure. Flow was improved. Given small size of vessel, we did not place another stent. At this time final angiogram was performed that showed excellent stent expansion, no residual stenosis and JASMINE-3 flow. Guidewire and guide catheter were removed. Patient left the Remediation Technician in a stable condition.. * Proximal Circumflex: 99% stenosis treated with a AB TREK 2.50X20 RX BALLOON. 0% residual stenosis, JASMINE: 3 flow. * Mid Circumflex: 70% stenosis treated with a AB TREK 2.50X20 RX BALLOON, MDT R ZENA 3.0X38 JESSICA, and MDT NC EUPHORA RX 3.89M36SW BALLOON. 0% residual stenosis, JASMINE: 3 flow. * Ramus: 99% stenosis treated with a MDT NC EUPHORA RX 3.34V59CH BALLOON. 0% residual stenosis, JASMINE: 3 flow. Conclusions 1. Subtotal occlusion of proximal left circumflex artery extending into OM 2. Status post successful revascularization with 1 stent. Subtotally occluded prior OM1/ramus artery stent. Status post successful revascularization with balloon angioplasty. 2. Proximal Circumflex was treated with a Balloon. 3. Mid Circumflex was treated with a Balloon, Drug Eluting Stent, and Balloon. 4. Ramus was treated with a Balloon. Recommendations * Dual antiplatelet therapy with aspirin and plavix for atleast 1 year. * High intensity statin therapy. * Outpatient cardiology follow up in 4 weeks. Interventional RX Recommendation: PCI w/o planned CABG Diagnostic RX Recommendation: PCI w/o planned CABG Anticoagulation: Heparin Pressures Phase:Rest AO : 99 / 75 ( 88 ) @ 10:05:00 AM 105 / 81 ( 94 ) @ 10:08:00 AM 138 / 96 ( 116 ) @ 10:52:00 AM Clinical Evaluation EBL: 5mL-10mL Procedural Details Procedure Consent Obtained. Current Diagnosis : Chest Pain. Pre-Procedure Time Out. Identified patient by full name and date of as verbalized by the patient/guarantor. Does the consent match the physician's order: Yes. Accurate & Complete Informed Consent: Yes. Inpatient/Outpatient History & Physical on Chart: Yes. If H&P is completed, is and addenduem needed: No; If yes, is the addendum complete: N/A. Visualize and Verify Site with Patient/Guarantor: N/A. Relevant Radiology Images available: Yes. Pre-op teaching completed and patient verbalized understanding. The risks, benefits, and alternatives of sedation and/or procedure were discussed by physician. The patient agrees to continue. Procedure started. [facility] Clinical Fraility Score: 3: Managing Well. Remediation Technician Indications: Worsening Angina. Chest Pain Symptom Assessment: Typical Angina Symptoms. Correct patient, site and procedure confirmed by cath team. Current diagnosis: Chest Pain. PERRLA. Strong, equal hand mat tester bilaterally. Lungs clear x 5 lobes. IV Site on Arrival: 20 gauge in the right anticubital. IV Fluids: 0.9% NaCl at KVO. 0 mL infused prior to catheter builder. Pre Procedural Pulses: right dorsalis pedis was 2+. Pre Procedural Pulses: left dorsalis pedis was Doppled. Pre Procedural Pulses: bilateral posterior tibial was Doppled. Oxygen started at 2liters/min via nasal canula. right groin was prepped with chloroprep then draped in the usual sterile fashion. right radial was prepped with chloroprep then draped in the usual sterile fashion. Baseline sample Acquired. HR: 64 BPM. Physician arrived. Physician scrubbed in. Immediate Pre-Procedure Time Out. Correct Patient: Yes; Correct Procedure: Yes; Correct Site: Yes; Correct Patient Position: Yes; Correct Supplies: Yes; Dried Flammable Prep: Yes; Blood Products Available: N/A;. Lidocaine 1% infiltrated to the right radial. Arterial access obtained. A 5 equatorial guinean TIG catheter in over wire. Multiple views taken of left coronary artery. Catheter redirected to the RCA. Multiple views taken of right coronary artery. Catheter removed over the exchange wire. 6 equatorial guinean XB 3.5 guide catheter was inserted over the wire. Guide catheter out. 6 equatorial guinean XB 3 guide catheter was inserted over the wire. IFR guidewire was advanced through the guide catheter to lesion in the mid LAD. IFR Results: 0.95. Runthrough guidewire was advanced through the guide catheter to lesion in the mid Circ. IFR wire out. Inflation number : 1 A AB TREK 2.50X20 RX BALLOON was prepped and advanced across the Mid CX , then inflated to 8 CASSY for 0:17 seconds. Inflation number: 1 The AB TREK 2.50X20 RX BALLOON was reinflated across the Prox CX, to 10 CASSY for 0:13 seconds. Balloon out. Results checked. Stent inserted to lesion in the mid Circ. Intact stent out OTW. Guideliner inserted OTW. Stent inserted to lesion in the mid Circ. Inflation Number : 2 A MDT R ZENA 3.0X38 JESSICA -Lot Number# _[id number] EXP: 10/03/2025 was prepped and advanced across the Mid CX. The stent was deployed at 12 CASSY for 0:22 seconds. Stent balloon out over wire. Guideliner out OTW. Results checked. Wire redirected to the Ramus. Inflation number : 1 A MDT NC EUPHORA RX 3.63Q58HO BALLOON was prepped and advanced across the Ramus , then inflated to 6 CASSY for 0:22 seconds. Inflation number: 2 The MDT NC EUPHORA RX [id number] BALLOON was reinflated across the Ramus, to 8 CASSY for 0:20 seconds. Balloon out. Results checked. Wire out. FFR guidewire was advanced through the guide catheter to lesion in the mid Circ. Inflation number: 3 The MDT NC EUPHORA RX 3.11T75YM BALLOON was reinflated across the Mid CX, to 12 CASSY for 0:11 seconds. Inflation number: 4 The MDT NC EUPHORA RX 3.65I82MP BALLOON was reinflated across the Mid CX, to 14 CASSY for 0:13 seconds. Inflation number: 5 The MDT NC EUPHORA RX 3.65V02OY BALLOON was reinflated across the Mid CX, to 16 CASSY for 0:10 seconds. Inflation number: 6 The MDT NC EUPHORA RX 3.86C45HM BALLOON was reinflated across the Mid CX, to 18 CASSY for 0:11 seconds. Balloon out. Wire out. ACT drawn. Results 281 seconds. Therapeutic limits - pre-heparin administration 90-150 seconds and monitoring heparin during a vascular procedure >250 seconds. Guide catheter out. A TR Band was successful obtaining hemostatsis at the Right Radial artery insertion site. Vital chart was stopped. Post Procedure: Pulses reassessed and unchanged. PERRLA. Strong, equal hand mat tester bilaterally. No VTE prophylaxis required. Medication's Wasted: Lidocaine 1% = 18 mL. Medication's Wasted: Nitro = 49.6 mcg. Medication's Wasted: Heparin = 1000 units. Medication's Wasted: Other = Versed 1 mg. Total IV fluids: 115 mL. Post-op diagnosis: Stent to Mid CX. Complications: None. Estimated blood loss: 5mL-10mL. Responsiveness - Normal response to verbal stimuli; alert and oriented, PERRLA. Airway - Unaffected, no intervention required; spontaneous ventilation. Circulation: W/N/L, pulses unchanged. Nausea/Vomiting: No. Procedure completed. Patient transferred by wheelchair to CPRU. Access Site Site: Right Radial artery Sheath Size: 6 Fr Hemostasis Method: TR Band Hemostasis Success: Successful Procedure Medications Start: 8:52 AM Stop: 8:52 AM Medication: Plavix Amount: 75 mg Route: P.O. Start: 8:54 AM Stop: 8:54 AM Medication: Versed Amount: 1 mg Route: I.V. Start: 8:54 AM Stop: 8:54 AM Medication: Fentanyl Amount: 50 mcg Route: I.V. Start: 9:00 AM Stop: 9:00 AM Medication: Versed Amount: 1 mg Route: I.V. Start: 9:01 AM Stop: 9:01 AM Medication: Nitrogylcerin Amount: 200 mcg Route: I.A. Start: 9:03 AM Stop: 9:03 AM Medication: Heparin Amount: 5000 units Route: I.V. Start: 9:12 AM Stop: 9:12 AM Medication: Heparin Amount: 5000 units Route: I.V. Start: 9:29 AM Stop: 9:29 AM Medication: Fentanyl Amount: 50 mcg Route: I.V. Start: 9:33 AM Stop: 9:33 AM Medication: Versed Amount: 1 mg Route: I.V. Start: 9:37 AM Stop: 9:37 AM Medication: Nitrogylcerin Amount: 200 mcg Route: I.C. Start: 9:53 AM Stop: 9:53 AM Medication: Plavix Amount: 300 mg Route: P.O. Start: 9:52 AM Stop: 9:52 AM Medication: 0.9% Saline Amount: 250 ml Route: I.V. bolus I, the attending physician, have reviewed and verified all procedure medications. Yes, all medications given per verbal order History/Risk Factors Hypertension: Yes Dyslipidemia: Yes Peripheral Arterial Disease (PAD): No Myocardial Infarction (GA): No Obesity: No Renal Disease: No Tobacco Use: Never Prior Interventions PCI: Yes CABG: No Valve Surgery: No Date of PCI: 04/25/2011 Report Signatures Finalized by Mani Warren MD on 11/12/2023 05:27 PM
[2023-10-29] MEDS: diphenhydrAMINE 50 mg Capsule PO (07:50)
[2023-10-29] MEDS: aspirin 325 mg Tablet PO (08:19)
--- NOTE | 2023-10-29 08:54 | W.PM.OPSUD ---
Surgery/Procedure H&P Update DATE OF PROCEDURE: October 29, 2023 DATE H&P PERFORMED: 10/13/23 H&P UPDATE INFORMATION: I have reviewed H&P completed within last 30 days, I have examined patient prior to procedure and No changes to prior documentation CHANGES TO PREVIOUS DOCUMENTATION: Patient was seen by his primary customer success intern, Dr Hernandez and plan was for coronary angiogram with him. As he is not available, I was asked to perform the procedure. Risks and benefits of the procedure discussed in detail. Patient and family understand these and want to proceed with it. PREOP DIAGNOSIS: CCS class 3 angina/ abnormal stress test PRIMARY INDICATION FOR PROCEDURE: CCS class 3 angina/ abnormal stress test PLANNED PROCEDURE: Operation Date: 10/29/23 08:30 Proposed Procedures p Cardiac Catheterization(Left) - Mani Warren M.D Possible percutaneous coronary intervention PATIENT REASSESSED PRIOR TO SEDATION, WITH NO CHANGE NOTED: Yes PHYSICAL EXAM: alert, oriented x 3, clear to auscultation bilaterally and regular rate & rhythm AIRWAY EVAL/ANESTHESIA PLAN: normal airway, ASA III, Local Anesthesia, Risks, benefits & alternatives of sedation and/or procedure discussed and Patient agrees to continue as planned ADDITIONAL INFORMATION: Moderate sedation
[2023-10-29] MEDS: losartan 50 mg Tablet PO (16:12)
[2023-10-29] MEDS: metoprolol succinate ER (24 HR) 25 mg Tablet PO (16:12)
[2023-10-29] MEDS: sodium chloride 0.9% 1,000 ML 100 ML IV ×2 (16:13→19:52)
[2023-10-30 03:37] LABS: Basophils % 0.6 %; Eosinophils # 0.2 10^3/uL (0.0-0.8); Eosinophils % 2.3 %; Lymphocytes # 1.7 10^3/uL (0.8-4.8); Lymphocytes % 24.4 %; Mean Corpuscular HGB Conc 33.9 g/dL (30-55); Mean Corpuscular Hemoglobin 31.4 pg (27-33); Mean Corpuscular Volume 92.6 fl (82-101); Mean Platelet Volume 9.9 fL (7.4-10.4); Monocytes # 0.6 10^3/uL (0.2-0.9); Monocytes % 8.7 %; Neutrophils # 4.35 10^3/uL (1.8-7.7); Neutrophils % 63.9 %; Nucleated Red Blood Cells % 0 %; Platelet Count 245 10^3/cmm (157-399); Red Blood Count 4.43 10^6/uL (3.85-5.65); Red Cell Distribution Width 12.6 % (12.1-15.1); White Blood Count 6.81 10^3/uL (3.29-11.43)
[2023-10-30 03:54] LABS: Anion Gap 13.2 (5-19); Blood Urea Nitrogen 15 mg/dL (8-23); Calcium 8.4 mg/dL (8.5-10.5); Carbon Dioxide 22 mmol/L (22-29); Chloride 106 mmol/L (98-107); Creatinine Clr Calc Pharmacy 68.3489; Glomerular Filtration Rate 55.1 mL/min (90-130); Glucose 104 mg/dL (65-115); Osmolality Calculated 285 mOsm/kg (285-295); Potassium 4.2 mmol/L (3.5-5.1); Sodium 137 mmol/L (136-145)
[2023-10-30 05:34] VITALS: BMI 33.0
[2023-10-30 05:53] VITALS: PULSE 64
--- NOTE | 2023-10-30 08:02 | PC.NURSE ---
Dr. Campa at bedside to put in D/C orders
--- NOTE | 2023-10-30 08:04 | P.DS_ITS ---
Discharge Providers Date of Admission: 10/29/2023 Date of Discharge: October 30, 2023 Attending Provider at Discharge: Mani Warren MD Primary Care Provider: VALENTINO Martinez Reason for Visit Reason for Visit: I25.118 Brief History: Six 8-year-old man with past medical history of coronary artery disease who has been having worsening shortness of breath and chest discomfort. Stress test is abnormal. Plan for coronary angiogram. Hospital Course Hospital Course Patient underwent successful revascularization of left circumflex artery with 1 stent. Balloon angioplasty of ramus artery/high OM was performed. iFR of LAD did not show ischemia. Patient was observed overnight and was discharged home in stable condition on dual antiplatelet therapy. Physical Exam Narrative: GENERAL: Patient is alert, awake and oriented x3. [] NECK: No jugular vein distension. [] HEENT: No cyanosis. No icterus. No pallor. [] HEART: Regular S1 and S2. No murmur, rub or gallop. [] LUNGS: Clear to auscultate bilaterally. [] CENTRAL NERVOUS SYSTEM: Grossly nonfocal. [] EXTREMITIES: Lower extremities with 1+ edema bilaterally. Discharge Data Studies Completed and Pending Pending at discharge Category Date Time Status [facility] OF APPEALS JUDGE request for service Routine Exams 10/29/23 07:30 Taken Laboratory Results WBC 6.81 10^3/uL (3.29-11.43) 10/30/23 03:22 RBC 4.43 10^6/uL (3.85-5.65) 10/30/23 03:22 Hgb 13.90 g/dL (11.27-16.99) 10/30/23 03:22 Hct 41.0 % (37-53) 10/30/23 03:22 MCV 92.6 fl (82-101) 10/30/23 03:22 MCH 31.4 pg (27-33) 10/30/23 03:22 MCHC 33.9 g/dL (30-55) 10/30/23 03:22 RDW 12.6 % (12.1-15.1) 10/30/23 03:22 Plt Count 245 10^3/cmm (157-399) 10/30/23 03:22 MPV 9.9 fL (7.4-10.4) 10/30/23 03:22 Neut % (Auto) 63.9 % 10/30/23 03:22 Lymph % (Auto) 24.4 % 10/30/23 03:22 [place] % (Auto) 8.7 % 10/30/23 03:22 Eos % (Auto) 2.3 % 10/30/23 03:22 Baso % (Auto) 0.6 % 10/30/23 03:22 Neut # (Auto) 4.35 10^3/uL (1.8-7.7) 10/30/23 03:22 Lymph # (Auto) 1.7 10^3/uL (0.8-4.8) 10/30/23 03:22 [place] # (Auto) 0.6 10^3/uL (0.2-0.9) 10/30/23 03:22 Eos # (Auto) 0.2 10^3/uL (0.0-0.8) 10/30/23 03:22 Baso # (Auto) 0.0 10^3/uL (0.0-0.1) 10/30/23 03:22 Nucleated RBC % (auto) 0 % 10/30/23 03:22 Nucleated RBCs # 0.0 /100WBC 10/30/23 03:22 Sodium 137 mmol/L (136-145) 10/30/23 03:22 Potassium 4.2 mmol/L (3.5-5.1) 10/30/23 03:22 Chloride 106 mmol/L (98-107) 10/30/23 03:22 Carbon Dioxide 22 mmol/L (22-29) 10/30/23 03:22 Anion Gap 13.2 (5-19) 10/30/23 03:22 BUN 15 mg/dL (8-23) 10/30/23 03:22 Creatinine 1.3 mg/dL (0.7-1.2) H 10/30/23 03:22 GFR Calculation 55.1 mL/min (90-130) L 10/30/23 03:22 Glucose 104 mg/dL (65-115) 10/30/23 03:22 Calculated Osmolality 285 mOsm/kg (285-295) 10/30/23 03:22 Calcium 8.4 mg/dL (8.5-10.5) L 10/30/23 03:22 Vitals Last Vital Signs Temp 97.8 F 10/29/23 07:56 Pulse 64 10/30/23 05:53 Resp 28 H 10/29/23 15:15 BP 125/85 10/29/23 16:12 Pulse Ox 99 10/29/23 12:30 O2 Del Method Room Air 10/29/23 10:59 Discharge Plan Discharge Patient Disposition: Home Prescriptions: Continued aspirin 81 mg tablet,delayed release (DR/EC) 81 mg PO DAILY Hold Instructions: Resume on 11/21/21. losartan 50 mg tablet See Rx Instructions .ROUTE .COMPLEX Qty: 90 4RF Dose Instruction: Take 1 tablet by mouth once daily for 90 days Rx Instructions: Take 1 tablet by mouth once daily for 90 days lovastatin 10 mg tablet 10 mg PO DAILY 90 Days Qty: 90 4RF metoprolol succinate 25 mg tablet extended release 24 hr See Rx Instructions .ROUTE .COMPLEX Qty: 180 4RF Dose Instruction: Take 1 tablet by mouth twice daily for 90 days Rx Instructions: Take 1 tablet by mouth twice daily for 90 days fenofibrate 54 mg tablet See Rx Instructions .ROUTE .COMPLEX Qty: 90 4RF Dose Instruction: Take 1 tablet by mouth once daily for 90 days Rx Instructions: Take 1 tablet by mouth once daily for 90 days clopidogrel 75 mg tablet 75 mg PO DAILY 90 Days Qty: 90 4RF Hold Instructions: Resume on 11/21/21. nitroglycerin 0.4 mg tablet, sublingual 0.4 mg sublingual Q5M PRN (Reason: chest pain) 30 Days Qty: 30 3RF Rx Instructions: until response; do not exceed 3 doses per episode nitroglycerin [Nitrostat] 0.4 mg tablet, sublingual 0.4 mg sublingual Q5M PRN (Reason: chest pain) 30 Days Qty: 30 0RF Rx Instructions: do not exceed 3 doses per episode Discharge Orders: Discharge Order (Routine); Ordered 10/30/23 Ordered By: Mani Warren Referrals: Sarthak Rivas FNP [Primary Care Provider] - (We have notified your physician's clinic of the need for a follow-up appointment to be scheduled. If you have not heard from them within the next 2 business days, please call them directly. ) Soraya Coughlin FNP [Nurse Practitioner] - 11/12/23 1:30 pm () Diet: Cardiac Activity: Increase activity as tolerated Patient Instructions: Coronary Angioplasty (DC) Discharge Date/Time: 10/30/23 10:14 Discharge Attestations Time Spent in Discharge Care*: less than 30 min Quality Metrics Clinical Quality Measures [ No reported AMI, CVA or VTE this stay] Coding Level of Care Code Acute Code for Tia Moore
[2023-10-30] MEDS: aspirin 81 mg EC Tablet PO (09:51)
[2023-10-30] MEDS: atorvastatin 40 mg Tablet 20 MG PO (09:51)
[2023-10-30] MEDS: clopidogrel 75 mg Tablet PO (09:51)
[2023-10-30 09:52] VITALS: BP 128/80
[2023-10-30] MEDS: losartan 50 mg Tablet PO (09:52)
[2023-10-30] MEDS: metoprolol succinate ER (24 HR) 25 mg Tablet PO (09:54)
--- NOTE | 2023-10-30 10:08 | PC.NURSE ---
All D/C instructions educated, D/C form signed
--- NOTE | 2023-10-30 10:14 | PC.NURSE ---
Out of facility transported by family
== END 2023-10-30 10:14 | disposition home or self-care (01) ==
LOC: CCL 07:24 → ICU 11:01
PROVIDERS: Internal Medicine; PCP Registered Nurse; Visit Provider Internal Medicine Cardiovascular Disease
DX: I25.118 Atherosclerotic heart disease of native coronary artery with other forms of angina pectoris (principal); I25.82 Chronic total occlusion of coronary artery; I10 Essential (primary) hypertension; E78.5 Hyperlipidemia, unspecified; Z79.01 Long term (current) use of anticoagulants
CPT/HCPCS: 36415; 80048; 85025; 85347; 92920; 93454; 93571; 96374; 96375; 99152; 99153; C1725; C1769; C1874; C1887; C1894; C9600; J1644; J2250; J3010; J3490; J7030; Q0163; Q9967

== ENCOUNTER → 2023-11-12 13:04 | Outpatient (BNVA) | payer MEDICARE, SELFPAY | PROVIDERS: PCP Registered Nurse; Visit Provider Nurse Practitioner Family | DX: I25.118 Atherosclerotic heart disease of native coronary artery with other forms of angina pectoris (principal); F17.200 Nicotine dependence, unspecified, uncomplicated; Z98.61 Coronary angioplasty status | CPT/HCPCS: 36415; 80048; 99214 ==

== ENCOUNTER → 2024-03-09 14:43 | Outpatient (BNVA) | payer MEDICARE, SELFPAY | PROVIDERS: PCP Registered Nurse; Visit Provider Registered Nurse | DX: I10 Essential (primary) hypertension (principal) | CPT/HCPCS: 80048; 85025 ==

== ENCOUNTER → 2024-06-09 14:52 | Outpatient (BNVA) | payer MEDICARE, SELFPAY | PROVIDERS: PCP Registered Nurse; Visit Provider Internal Medicine Cardiovascular Disease | DX: I25.10 Atherosclerotic heart disease of native coronary artery without angina pectoris (principal); E78.2 Mixed hyperlipidemia; I10 Essential (primary) hypertension; Z87.442 Personal history of urinary calculi | CPT/HCPCS: 99214 ==

== ENCOUNTER → 2024-12-02 09:06 | Outpatient (BNVA) | payer MEDICARE, SELFPAY | PROVIDERS: PCP Registered Nurse; Visit Provider Registered Nurse | DX: I10 Essential (primary) hypertension (principal) | CPT/HCPCS: 80053; 80061; 85025 ==

== ENCOUNTER 2024-12-25 23:48 | Emergency (ER) | payer MEDICARE, SELFPAY ==
[2024-12-25 23:54] VITALS: BP 164/95; PULSE 75; RESP 16; TEMP 36.6; O2SAT 98; BMI 30.7
--- OUTSIDE RECORDS SUMMARY | 2024-12-26 00:08 | XMS_ITS | Clinical Summary ---
Author Organization [facility] Address [address] [facility] Attn: [place] [address] Care Team Providers Care Fuel Cell Systems Engineer Name Role Phone Adin Nicholas DO Primary Care Provider [phone] Allergies No known active allergies Family History Medical History Relation Name Comments Heart Disease Father Healthy Mother Relation Name Status Comments Father Alive Mother Alive Social History Tobacco Use Types Packs/Day Years Used Date Smoking Tobacco: Never Smokeless Tobacco: Current Alcohol Use Standard Drinks/Week Comments No 0 (1 standard drink = 0.6 oz pur e alcohol) Sex and Gender Information Value Date Recorded Sex Assigned at Not on file 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 Gender Identity Not on file Sexual Orientation Not on file Plan of Treatment Health Maintenance Due Date Last Done Comments DTAP/TDAP/TD VACCINES (1 - Tdap) 02/10/1975 COLORECTAL SCREENING 02/10/2001 Colorectal Cancer Screening 02/10/2001 FIT-DNA Q 3 years 02/10/2001 FIT/FOBT Q 1 year 02/10/2001 Flex Sig/CT Colonography Q 5 years 02/10/2001 PNEUMOCOCCAL VACCINE 50+ YEARS (1 of 1 - PCV) 02/11/20 06 ZOSTER VACCINE (1 of 2) 02/10/2006 INFLUENZA VACCINE (#1) 2024 RSV VACCINE (60+ or ) (1 - 1-dose 75+ series) 02/10/2031 Care Teams Fuel Cell Systems Engineer Relationship Specialty Start Date End Date Adin Nicholas DO [address] [place] [address] PCP - General Internal Medicine 08/02/11
--- OUTSIDE RECORDS SUMMARY | 2024-12-26 00:08 | XMS_ITS | Clinical Summary ---
Author Organization [facility] de Address [address] [place] [address] Phone Care Team Providers Care Meat And Seafood Manager Name Role Phone GanadoAdin hernandez Primary Care Provider [phone] Allergies No known active allergies Medications rosuvastatin (CRESTOR) 10 mg Oral tablet Take 10 mg by mouth daily at bedtime. Active fenofibric acid (TRILIPIX) 135 mg Oral CpDR Take 135 mg by mouth daily. Active metoprolol tartrate (LOPRESSOR) 25 mg Oral tablet Take 25 mg by mouth 2 times daily. Active multivitamin (DAILY-MELONY) Oral tablet Take 1 Tab by mouth daily. Active aspirin (JO) 325 mg Oral tablet Take 325 mg by mouth daily. Active nitroglycerin (NITROSTAT) 0.[address] 0.4 mg under tongue every 5 minutes as needed. Active isosorbide mononitrate SR 24 hour (IMDUR) 60 mg Oral tablet Take 60 mg by mouth 2 times daily. Active clopidogrel (PLAVIX) 75 mg Oral Tab Take 1 Tab by mouth daily. 30 Tab 12 08/06/2011 Active HYDROcodone-acet aminophen (NORCO) 7.5-325 mg Oral Tab Take 1-2 Tabs by mouth every 4 hours as needed for Pain. 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 Gender Identity Not on file Sexual Orientation Not on file Occupation Industry Job Start Date Job End Date Not on file Not on file Not on file Not on file Last Filed Vital Signs Vital Sign Reading Time Taken Comments Blood Pressure 138/71 10/23/2011 4:58 PM CDT Pulse 72 10/23/2011 4:58 PM CDT Temperature 36.7 C (98.1 F) 10/23/2011 12:23 PM CDT Respiratory Rate 18 10/23/2011 4:58 PM CDT Oxygen Saturation 98% 10/23/2011 4:58 PM CDT Inhaled Oxygen Concentration - - Weight 108.9 kg (240 lb) 10/23/2011 12:23 PM CDT Height 180.3 cm (5' 11 ) 10/23/2011 12:23 PM CDT Body Mass Index 33.47 10/23/2011 12:23 PM CDT Plan of Treatment Health Maintenance Due Date [...] ) (1 - 1-dose 75+ series) 02/10/2031 Advance Directives For more information, please contact: [phone] * Full Code (Latest Code Status on File) Date Activated Date Inactivated Comments 08/05/2011 12:06 PM 08/06/2011 11:48 AM * Full Code Date Activated Date Inactivated Comments 08/05/2011 9:20 AM 08/05/2011 12:06 PM Care Teams Meat And Seafood Manager Relationship Specialty Start Date End Date Adin Nicholas DO PCP - General Internal Medicine 08/02/11
--- OUTSIDE RECORDS SUMMARY | 2024-12-26 00:08 | XMS_ITS | Encounter Summary ---
Author Organization [facility] Address [address] [place] [address] Care Team Providers Care Advertising Space Clerk Name Role Phone CristopherAdin hernandez Tamara OSORIO Primary Care Provider + [phone] Reason for Referral * Outpatient Services (Routine) - Closed Specialty Diagnoses / Procedures Referred By Shelbi vail Referred To Contact Diagnoses Chest pain Procedures CL LT HEART CATHETERIZATION Mariano Sullivan MD [address] [employer] [address] [place] [address] Phone: tel: fax: Referral ID Status Reason Start Date Expiration Date Visits Re quested Visits Authorized [id number] Closed 08/01/2011 07/31/2012 1 1 Encounter Details Date Type Department Care Team (Late st Contact Info) Description 08/01/2011 [facility]illary [facility] [address] [place] [address] Mariano Sullivan MD [address] [employer] [address] [place] [phone] Chest pain Social History Tobacco Use Types Packs/Day Years Used Date Smoking Tobacco: Never Assessed Sex and Gender Information Value Date Recorded Sex Assigned at Not on file 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 Gender Identity Not on file Sexual Orientation Not on file documented as of this encounter Plan of Treatment Not on file documented as of this encounter Results * CL LT HEART CATHETERIZATION (08/05/2011 12:02 PM CDT) 08/05/2011 10:3 9 AM CDT Narrative INTERFACE SYSTEM - 08/05/2011 12:17 PM CDT [facility] Cardiac Catheterization Laboratory [address] [place] [id number] Cardiac Catheterization Patient: Shantanu Reveles Study ID: [id number] Gender: M : 1955 Age: 56 Room: [facility] Study Date: 08/05/2011 Pt Status: Study Time: 10:39 AM REFERRING Mariano Sullivan REFERRING [id number], Mariano Chen History: Prior myocardial infarction. Risk factors: Hypertension. Dyslipidemia. Allergies: No known allergies. Labs, prior tests, procedures, and surgery: Serum creatinine (current admission) of 1.8 mg/dl. Prothrombin time (PT) of 12.9 sec. Partial thromboplastin time (PTT) of 26.7 sec. Hematocrit of 40.6 %. Serum sodium (Na) of 141 mEq/l. Serum potassium (K) of 4.3 mEq/l. Blood urea nitrogen of 24 mg/dl. Hemoglobin (pre-procedure) of 14.1 g/dl. International normalized ratio (INR) of 0.9. Catheterization with coronary intervention (May 07, 2011). Study data: Study status: Cardiac cath: elective. Consent: The risks, benefits, and alternatives to the procedure were explained to the patient and informed consent was obtained. Procedures performed: - Left coronary angiography. - Right coronary angiography. - Left coronary angiography. - Percutaneous intervention on the 60% severe stenosis in the proximal LAD. Stent (3.5X12 STENT INT RX RES) placement. Doppler flow reserve. - Pressure flow reserve measurement. Stent (3.0X22 STENT INT RX RES) placement. Balloon angioplasty. Procedure: 1. Initial setup. Baseline vitals were recorded. Surface ECG leads, blood pressure measurements, and pulse oximetric signals were monitored. 2. Skin preparation. The planned puncture sites were prepped and draped in the usual sterile manner. 3. Supplemental oxygen. Oxygen, 3L/min was administered throughout the procedure. 4. Right femoral artery access. A 6FR INTRODUCER sheath was advanced into the vessel. 5. Selective left coronary angiography. A 6FR JL4 CATH catheter was advanced into the left coronary vessel ostium under fluoroscopic guidance. Contrast was injected by hand. Images were obtained in multiple projections. 6. Selective right coronary angiography. A 6FR JR4 CATH catheter was advanced into the right coronary vessel ostium under fluoroscopic guidance. Contrast was injected by hand. Images were obtained in multiple projections. 7. Sheath exchange. The right femoral artery sheath was exchanged for a 7FR INTRODUCER WITH WIRE sheath. 8. Catheter exchange. The catheter was exchanged for a 7FR GUIDE XB 3.0 catheter. 9. Selective left coronary angiography. A catheter was advanced into the left coronary vessel ostium under fluoroscopic guidance. Contrast was injected by hand. Images were obtained in multiple projections. 1st lesion intervention: Percutaneous intervention on the 60% severe stenosis in the proximal LAD. 1. Stent placement. A 3.5X12 STENT INT RX RES stent was advanced across the lesion and deployed with a single inflation and a maximum pressure of 10atm. 2. Doppler flow reserve measurement. A Doppler flow wire was advanced across the stenosis. Following vasodilation with adenosine. The flow reserve was calculated to be 0.74. By flow reserve measurement, the stenosis was judged to be hemodynamically significant. 2nd lesion intervention: 1. Pressure-derived flow reserve measurement, using a WIRE [employer] pressure-monitoring guide-wire positioned at the distal tip of the catheter. Steady baseline values were obtained. Mean arterial pressure and mean distal coronary pressures were then obtained at maximum hyperemia. 1 measurements were obtained.The pressure flow reserve was calculated to be 74. 2. Stent placement. A 3.0X22 STENT INT RX RES stent was advanced across the lesion and deployed with a single inflation and a maximum pressure of 9atm. 3. Balloon angioplasty. A 3.0X12 [employer] APEX RX balloon was positioned across the lesion and given two inflations with a maximum inflation pressure of 16atm. Study completion: All catheters and wires inserted during the procedure were removed intact. The patient tolerated the procedure well. There were no complications. Administered medications: Nitroglycerin, 250mcg, into the coronary artery. IV SOLUTIONS. IV SOLUTIONS. Midazolam, for a total dose of 3mg. Fentanyl, for a total dose of 75mcg. Coronary arteries: The coronary circulation is right dominant. LAD: Proximal vessel lesion: There is a discrete, 60%severe stenosis. The lesion was stented (see 1st lesion intervention). Mid-vessel lesion: There is a 60% stenosis. The lesion was stented. 2nd obtuse marginal: Ostial lesion: There is a 100% stenosis. Right coronary: Proximal vessel lesion: There is a 30% stenosis. Hemodynamics: + + + Stage description Condition1:Rest - + + + Arterial pressure s/d (m) 129/80 (102) + + + Conclusions: Summary: 1. 1st lesion intervention: Stent placement. A 3.5X12 STENT INT RX RES stent was advanced across the lesion and deployed with a single inflation and a maximum pressure of 10atm. 2. 2nd lesion intervention: Stent placement. A 3.0X22 STENT INT RX RES stent was advanced across the lesion and deployed with a single inflation and a maximum pressure of 9atm. 3. LAD: Proximal vessel lesion: There is a discrete, 60%severe stenosis. The lesion was stented (see 1st lesion intervention). Mid-vessel lesion: There is a 60% stenosis. The lesion was stented. 4. 2nd obtuse marginal: Ostial lesion: There is a 100% stenosis. Prepared and signed by Mariano Sullivan [id number] Procedure Note Mariano Sullivan MD - 08/05/2011 [facility] Cardiac Catheterization Laboratory [address] [place] [address] Cardiac Catheterization Patient: Shantanu Reveles Study ID: [id number] Gender: M : 1955 Age: 56 Room: [facility] Study Date: 08/05/2011 Pt Status: Study Time: 10:39 AM REFERRING Sullivan, Mariano LANCASTER [id number] Mariano Murdock History: Prior myocardial infarction. Risk factors: Hypertension. Dyslipidemia. Allergies: No known allergies. Labs, prior tests, procedures, and surgery: Serum creatinine (current admission) of 1.8 mg/dl. Prothrombin time (PT) of 12.9 sec. Partial thromboplastin time (PTT) of 26.7 sec. Hematocrit of 40.6 %. Serum sodium (Na) of 141 mEq/l. Serum potassium (K) of 4.3 mEq/l. Blood urea nitrogen of 24 mg/dl. Hemoglobin (pre-procedure) of 14.1 g/dl. International normalized ratio (INR) of 0.9. Catheterization with coronary intervention (May 07, 2011). Study data: Study status: Cardiac cath: elective. Consent: The risks, benefits, and alternatives to the procedure were explained to the patient and informed consent was obtained. Procedures performed: - Left coronary angiography. - Right coronary angiography. - Left coronary angiography. - Percutaneous intervention on the 60% severe stenosis in the proximal LAD. Stent (3.5X12 STENT INT RX RES) placement. Doppler flow reserve. - Pressure flow reserve measurement. Stent (3.0X22 STENT INT RX RES) placement. Balloon angioplasty. Procedure: 1. Initial setup. Baseline vitals were recorded. Surface ECG leads, blood pressure measurements, and pulse oximetric signals were monitored. 2. Skin preparation. The planned puncture sites were prepped and draped in the usual sterile manner. 3. Supplemental oxygen. Oxygen, 3L/min was administered throughout the procedure. 4. Right femoral artery access. A 6FR INTRODUCER sheath was advanced into the vessel. 5. Selective left coronary angiography. A 6FR JL4 CATH catheter was advanced into the left coronary vessel ostium under fluoroscopic guidance. Contrast was injected by hand. Images were obtained in multiple projections. 6. Selective right coronary angiography. A 6FR JR4 CATH catheter was advanced into the right coronary vessel ostium under fluoroscopic guidance. Contrast was injected by hand. Images were obtained in multiple projections. 7. Sheath exchange. The right femoral artery sheath was exchanged for a 7FR INTRODUCER WITH WIRE sheath. 8. Catheter exchange. The catheter was exchanged for a 7FR GUIDE XB 3.0 catheter. 9. Selective left coronary angiography. A catheter was advanced into the left coronary vessel ostium under fluoroscopic guidance. Contrast was injected by hand. Images were obtained in multiple projections. 1st lesion intervention: Percutaneous intervention on the 60% severe stenosis in the proximal LAD. 1. Stent placement. A 3.5X12 STENT INT RX RES stent was advanced across the lesion and deployed with a single inflation and a maximum pressure of 10atm. 2. Doppler flow reserve measurement. A Doppler flow wire was advanced across the stenosis. Following vasodilation with adenosine. The flow reserve was calculated to be 0.74. By flow reserve measurement, the stenosis was judged to be hemodynamically significant. 2nd lesion intervention: 1. Pressure-derived flow reserve measurement, using a W[employer] pressure-monitoring guide-wire positioned at the distal tip of the catheter. Steady baseline values were obtained. Mean arterial pressure and mean distal coronary pressures were then obtained at maximum hyperemia. 1 measurements were obtained.The pressure flow reserve was calculated to be 74. 2. Stent placement. A 3.0X22 STENT INT RX RES stent was advanced across the lesion and deployed with a single inflation and a maximum pressure of 9atm. 3. Balloon angioplasty. A 3.0X12 [employer] APEX RX balloon was positioned across the lesion and given two inflations with a maximum inflation pressure of 16atm. Study completion: All catheters and wires inserted during the procedure were removed intact. The patient tolerated the procedure well. There were no complications. Administered medications: Nitroglycerin, 250mcg, into the coronary artery. IV SOLUTIONS. IV SOLUTIONS. Midazolam, for a total dose of 3mg. Fentanyl, for a total dose of 75mcg. Coronary arteries: The coronary circulation is right dominant. LAD: Proximal vessel lesion: There is a discrete, 60%severe stenosis. The lesion was stented (see 1st lesion intervention). Mid-vessel lesion: There is a 60% stenosis. The lesion was stented. 2nd obtuse marginal: Ostial lesion: There is a 100% stenosis. Right coronary: Proximal vessel lesion: There is a 30% stenosis. Hemodynamics: + + + Stage description Condition1:Rest - + + + Arterial pressure s/d (m) 129/80 (102) + + + Conclusions: Summary: 1. 1st lesion intervention: Stent placement. A 3.5X12 STENT INT RX RES stent was advanced across the lesion and deployed with a single inflation and a maximum pressure of 10atm. 2. 2nd lesion intervention: Stent placement. A 3.0X22 STENT INT RX RES stent was advanced across the lesion and deployed with a single inflation and a maximum pressure of 9atm. 3. LAD: Proximal vessel lesion: There is a discrete, 60%severe stenosis. The lesion was stented (see 1st lesion intervention). Mid-vessel lesion: There is a 60% stenosis. The lesion was stented. 4. 2nd obtuse marginal: Ostial lesion: There is a 100% stenosis. Prepared and signed by Mariano Sullivan [id number] Mariano Sullivan MD FLUOROSCOPY ORDERABLES Final Result Performing Organization Address City/State/[facility] Co de Phone Number INTERFACE SYSTEM Refer to clinic/hospital department documented in this encounter Visit Diagnoses Diagnosis Chest pain Chest pain, unspecified Chest pain Chest pain, unspecified documented in this encounter Care Teams Advertising Space Clerk Relationship Specialty Start Date End Date Adin Nicholas DO PCP - General Internal Medicine 08/02/11 documented as of this encounter
[2024-12-26 00:17] LABS: Glucose Urine UA Negative (Normal); Nitrate Urine Negative (Negative); Specific Gravity, Urine 1.028 (1.005-1.030)
[2024-12-26 00:22] LABS: Hematocrit 37.1 % (37-53); Hemoglobin 12.60 g/dL (11.27-16.99); Mean Corpuscular HGB Conc 34.0 g/dL (30-55); Mean Corpuscular Hemoglobin 31.6 pg (27-33); Mean Corpuscular Volume 93.0 fl (82-101); Nucleated Red Blood Cells % 0 %; Platelet Count 250 10^3/cmm (157-399); Red Blood Count 3.99 10^6/uL (3.85-5.65); White Blood Count 6.88 10^3/uL (3.29-11.43)
[2024-12-26 00:25] LABS: UA Manual Slide Review YES
--- NOTE | 2024-12-26 00:25 | CTR_ITS ---
PROCEDURE INFORMATION: Exam: CT Abdomen And Pelvis Without Contrast Exam date and time: 12/26/2024 12:54 AM Age: 69 years old Clinical indication: Abdominal pain; Right; Prior surgery; Surgery date: 6+ months; Surgery type: Coronary stents. Appy; C/O RT flank pain. History of ureteral stent placement. ; Additional info: Rlq R flank pain TECHNIQUE: Imaging protocol: Computed tomography of the abdomen and pelvis without contrast. Radiation optimization: All CT scans at this facility use at least one of these dose optimization techniques: automated exposure control; mA and/or kV adjustment per patient size (includes targeted exams where dose is matched to clinical indication); or iterative reconstruction. COMPARISON: CT kidney stone [id number] 11/18/2021 9:11 AM RADIATION DOSE METRICS: Total DLP (mGy-cm): 864.03 FINDINGS: Lungs: The visualized lung prince show mild bibasilar atelectasis. Liver: Normal size and homogeneous density. No liver mass is seen. Gallbladder and biliary ducts: No calcified gallstones. No ductal dilation. Pancreas: Normal size and homogeneous density. No ductal dilation. Spleen: Normal. No splenomegaly. Adrenal glands: Normal. No mass. Kidneys and ureters: There is fullness of the right renal collecting system and ureter down to the ureterovesical junction (UVJ), where there is a partially obstructive 5 x 4 mm calculus. In the distal right ureter, there is a 3 mm partially obstructive calculus. There are bilateral 3 mm nonobstructive renal calculi. Stomach and bowel: No evidence of bowel colonic obstruction. Appendix: There has been prior appendectomy. Intraperitoneal space: No free air. No significant fluid collection. Vasculature: There is mild atherosclerotic calcification of the abdominal aorta and its branches without aneurysm. Lymph nodes: No enlarged retroperitoneal or mesenteric lymph nodes. Urinary bladder: There is mild bladder wall thickening. Reproductive: Unremarkable as visualized. Bones/joints: No acute fracture.Multilevel degenerative disc disease without significant central spinal canal stenosis. There are multilevel facet arthrosis and posterior hypertrophic bony changes with corresponding neural foraminal narrowing. At L2-L3, L3-L4, L4-L5 and L5-S1 there are posterior osteophytes with moderate bilateral neural foraminal narrowing. Soft tissues: Unremarkable. CT/CT kidney stone [id number] IMPRESSION: 1. A 5 mm partially obstructive calculus at the right UVJ and a 3 mm partially obstructive calculus in the distal right ureter. 2. There are bilateral 3 mm nonobstructive renal calculi. 3. Bladder wall thickening suggesting cystitis, incomplete distention or chronic outflow obstruction. The bladder is mostly decompressed. 4. Additional non emergent findings as stated in the body of the report.
[2024-12-26 00:35] VITALS: BP 164/95; PULSE 74; RESP 16; O2SAT 96
[2024-12-26] MEDS: morphine 4 mg/mL SDV 1 mL IVP (00:41)
[2024-12-26] MEDS: ondansetron 2 mg/ML SDV 2 mL 4 MG IVP (00:41)
[2024-12-26 00:42] LABS: Alanine Aminotransferase 12 U/L (0-41); Albumin Level 4.0 g/dL (3.5-5.2); Alkaline Phosphatase 77 U/L (40-130); Anion Gap 15.8 (5-19); Aspartate Amino Transferase 17 U/L (0-40); Blood Urea Nitrogen 17 mg/dL (8-23); Calcium 9.0 mg/dL (8.5-10.5); Carbon Dioxide 22 mmol/L (22-29); Chloride 106 mmol/L (98-107); Creatinine Clr Calc Pharmacy 60.7829; Globulin 2.7 g/dL (1.3-4.6); Glucose 109 mg/dL (65-115); Lipase 39 U/L (13-60); Osmolality Calculated 292 mOsm/kg (285-295); Potassium 3.8 mmol/L (3.5-5.1); Sodium 140 mmol/L (136-145); Total Protein 6.7 g/dL (6.6-8.7)
--- NOTE | 2024-12-26 01:51 | W.ED.ABDPA2 ---
HPI - Abdominal Pain General: Chief Complaint: Abdominal Pain Stated Complaint: Thinks might have a kidney stone Time Seen by Provider: 12/26/24 00:02 History of Present Illness: Patient is a 69-year-old male presenting with right-sided flank pain that began approximately 2.5 days ago. He describes the pain as being located in the right flank area with radiation to the back. The pain has been intermittent in nature, with varying intensity. The first night after onset, he reports being unable to sleep due to the pain. The following day, symptoms improved somewhat. This morning, he urinated normally without pain, but as the day progressed while he was working and sweating, the pain gradually worsened. He denies hematuria during this episode, though notes he has experienced this in previous episodes. He denies nausea, vomiting, fever, diarrhea, or blood in stool. The patient has a history of kidney stones and has undergone surgical intervention for kidney stones in the past. He identifies the current pain as similar to his previous kidney stone episodes. Related Data Home Medications ?Medication ?Instructions ?Recorded ?Confirmed aspirin 81 mg tablet,delayed 81 mg PO DAILY 01/16/21 11/04/24 release Previous Rx's ?Medication ?Instructions ?Recorded nitroglycerin 0.4 mg sublingual 0.4 mg sublingual Q5M PRN chest 10/13/23 tablet pain 30 days #30 tabs metoprolol succinate 25 mg See Rx Instructions .Route 10/20/24 tablet,extended release 24 hr .COMPLEX #180 tabs clopidogrel 75 mg tablet 75 mg PO DAILY 90 days #90 tabs 11/04/24 fenofibrate 54 mg tablet See Rx Instructions .Route 11/04/24 .COMPLEX #90 tabs losartan 50 mg tablet See Rx Instructions .Route 11/04/24 .COMPLEX #90 tabs lovastatin 10 mg tablet See Rx Instructions .Route 11/04/24 .COMPLEX 90 days #90 tabs triamcinolone acetonide 0.1 % 1 applic topical BID 10 days #30 11/04/24 topical ointment grams omeprazole 20 mg capsule,delayed 20 mg PO DAILY PRN GERD 30 days 12/02/24 release #30 caps ondansetron 4 mg disintegrating 4 mg PO Q6H PRN nausea and 12/26/24 tablet vomiting #14 tabs oxycodone-acetaminophen 7.5 mg-325 1 tab PO Q6H PRN pain #10 tabs 12/26/24 mg tablet (Percocet) tamsulosin 0.4 mg capsule (Flomax) 0.4 mg PO DAILY #14 caps 12/26/24 Allergies Allergy/AdvReac Type Severity Reaction Status Date / Time No Known Allergies Allergy Verified 12/25/24 23:54 [facility] ED PFSH: Medical History Urolithiasis Coronary artery disease Hypertension Mixed hyperlipidemia Calculus of distal left ureter History of kidney stones Gross hematuria Surgical History S/P ureteral stent placement History of appendectomy H/O heart artery stent [address] in 2010 Family History Mother Hypertension Father , atage 78 Dementia Social History Smoking and tobacco/nicotine status: current every day tobacco/nicotine user (Smokeless Tobacco) smokeless tobacco Smokeless tobacco user: chewing tobacco Alcohol intake: never Lives independently: Yes Household members: spouse and family Marital status: Current occupational status: employed 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 [employer] Physical Exam Const: COMMON NORMALS: no acute distress GENERAL APPEARANCE: cooperative; not ill appearing and not frail appearing HENMT: COMMON NORMALS: normocephalic, atraumatic and Normal external nose present HEAD & SCALP: normocephalic and atraumatic FACE & SINUS: normal facial exam and face symmetric NOSE: Normal external nose present Eye: COMMON NORMALS: Equal, round and reactive pupils present and EOMs intact bilaterally PUPIL: Yes Equal, round and reactive pupils present Neck/C-Spine: GENERAL: Yes trachea midline Chest: CHEST: Yes Symmetrical chest wall rise Resp: COMMON NORMALS: normal respiratory effort, No retractions, No use of accessory muscles and clear to auscultation bilaterally AUSCULTATION: clear to auscultation bilaterally Cardio: COMMON NORMALS: regular rate and regular rhythm RATE: regular rate RHYTHM: regular rhythm GI: COMMON NORMALS: Normal to inspection, nondistended, normoactive bowel sounds present : BLADDER/KIDNEY EXAM: Yes CVA tenderness on the right Back/Pelvis: GENERAL BACK: Yes CVA tenderness Extremity: COMMON NORMALS: no pedal edema Neuro: [place] COMA SCALE: document GCS findings [place] coma scale eye opening: Spontaneous [place] coma scale verbal response: Orientated Shepherd coma scale motor response: Obey commands [place] coma scale total score: 15 SENSORY EXAM: Yes extremities (intact) Psych: COMMON NORMALS: speech normal SPEECH: Yes normal speech Skin: COMMON NORMALS: no rashes or lesions noted GENERAL SKIN EXAM: no rashes or lesions noted Course Vital Signs: Vital signs: Vital Signs Temperature 97.8 F 12/25/24 23:54 Pulse Rate 74 12/26/24 00:35 Respiratory Rate 16 12/26/24 00:35 Blood Pressure 164/95 12/26/24 00:35 Pulse Oximetry 96 12/26/24 00:35 Oxygen Delivery Me thod Room Air 12/26/24 00:35 MDM - Abdominal Pain Medical Decision Making Vitals are stable. He is a bit hypertensive. CBC is normal. BMP shows a creatinine of 1.4. He has both hematuria and but without leukocyte esterase. His CRP is minimally elevated. CT is pending. CT shows UVJ stone at 5 mm, followed by a 3 mm stone behind it. Pain is controlled currently. Will be discharged on pain medication, Flomax, antiemetic. Urology follow-up. Lab Data 12/26/24 00:16 12/26/24 00:16 Labs/Radiology: Radiology Impressions Abdomen/Pelvis CT 12/26/24 00:25 IMPRESSION: 1. A 5 mm partially obstructive calculus at the right UVJ and a 3 mm partially obstructive calculus in the distal right ureter. 2. There are bilateral 3 mm nonobstructive renal calculi. 3. Bladder wall thickening suggesting cystitis, incomplete distention or chronic outflow obstruction. The bladder is mostly decompressed. 4. Additional non emergent findings as stated in the body of the report. Laboratory Results WBC 6.88 10^3/uL (3.29-11.43) 12/26/24 00:16 RBC 3.99 10^6/uL (3.85-5.65) 12/26/24 00:16 Hgb 12.60 g/dL (11.27-16.99) 12/26/24 00:16 Hct 37.1 % (37-53) 12/26/24 00:16 MCV 93.0 fl (82-101) 12/26/24 00:16 MCH 31.6 pg (27-33) 12/26/24 00:16 MCHC 34.0 g/dL (30-55) 12/26/24 00:16 RDW 13.1 % (12.1-15.1) 12/26/24 00:16 Plt Count 250 10^3/cmm (157-399) 12/26/24 00:16 MPV 10.2 fL (7.4-10.4) 12/26/24 00:16 Neut % (Auto) 56.9 % 12/26/24 00:16 Lymph % (Auto) 31.8 % 12/26/24 00:16 Bertie % (Auto) 8.7 % 12/26/24 00:16 Eos % (Auto) 1.9 % 12/26/24 00:16 Baso % (Auto) 0.6 % 12/26/24 00:16 Neut # (Auto) 3.91 10^3/uL (1.8-7.7) 12/26/24 00:16 Lymph # (Auto) 2.2 10^3/uL (0.8-4.8) 12/26/24 00:16 Bertie # (Auto) 0.6 10^3/uL (0.2-0.9) 12/26/24 00:16 Eos # (Auto) 0.1 10^3/uL (0.0-0.8) 12/26/24 00:16 Baso # (Auto) 0.0 10^3/uL (0.0-0.1) 12/26/24 00:16 Nucleated RBC % (auto) 0 % 12/26/24 00:16 Nucleated RBCs # 0.0 /100WBC 12/26/24 00:16 Sodium 140 mmol/L (136-145) 12/26/24 00:16 Potassium 3.8 mmol/L (3.5-5.1) 12/26/24 00:16 Chloride 106 mmol/L (98-107) 12/26/24 00:16 Carbon Dioxide 22 mmol/L (22-29) 12/26/24 00:16 Anion Gap 15.8 (5-19) 12/26/24 00:16 BUN 17 mg/dL (8-23) 12/26/24 00:16 Creatinine 1.4 mg/dL (0.7-1.2) H 12/26/24 00:16 GFR Calculation 50.4 mL/min (90-130) L 12/26/24 00:16 Glucose 109 mg/dL (65-115) 12/26/24 00:16 Calculated Osmolality 292 mOsm/kg (285-295) 12/26/24 00:16 Calcium 9.0 mg/dL (8.5-10.5) 12/26/24 00:16 Total Bilirubin 0.2 mg/dL (0.15-1.2) 12/26/24 00:16 AST 17 U/L (0-40) 12/26/24 00:16 ALT 12 U/L (0-41) 12/26/24 00:16 Alkaline Phosphatase 77 U/L (40-130) 12/26/24 00:16 C-Reactive Protein 9.7 mg/L (0.0-4.9) H 12/26/24 00:16 Total Protein 6.7 g/dL (6.6-8.7) 12/26/24 00:16 Albumin 4.0 g/dL (3.5-5.2) 12/26/24 00:16 Globulin 2.7 g/dL (1.3-4.6) 12/26/24 00:16 Lipase 39 U/L (13-60) 12/26/24 00:16 Urine Color Yellow (Yellow) 12/25/24 23:59 Urine Appearance Cloudy (CLEAR) A 12/25/24 23:59 Urine pH 5.5 (5-7) 12/25/24 23:59 Ur Specific [place] 1.028 (1.005-1.030) 12/25/24 23:59 Urine Protein 2+ (Negative) A 12/25/24 23:59 Urine Glucose (UA) Negative (Normal) 12/25/24 23:59 Urine Ketones Negative (Negative) 12/25/24 23:59 Urine Blood 3+ (Negative) A 12/25/24 23:59 Urine Nitrate Negative (Negative) 12/25/24 23:59 Urine Bilirubin Negative (Negative) 12/25/24 23:59 Urine Urobilinogen 1.0 mg/dL (Negative) 12/25/24 23:59 Ur Leukocyte Esterase Negative (Negative) 12/25/24 23:59 Urine RBC 51-100 /hpf (0-2) H 12/25/24 23:59 Urine WBC 55-80 /hpf (0-5) H 12/25/24 23:59 Ur Squamous Epith Cells 0-4 /hpf (0-5) H 12/25/24 23:59 Calcium Oxalate Crystal 80-100 /hpf H 12/25/24 23:59 Amorphous Sediment Not Reportable 12/25/24 23:59 Urine Bacteria Trace /hpf (NONE) 12/25/24 23:59 Urine Mucus 1+ /hpf 12/25/24 23:59 All radiology interpretation(s) finalized by discharge Discharge Plan Discharge Patient Disposition: Home Clinical Impression: Urolithiasis Condition: Stable Prescriptions: New oxycodone-acetaminophen [Percocet] 7.5-325 mg tablet 1 tab PO Q6H PRN (Reason: pain) Qty: 10 0RF ondansetron 4 mg tablet,disintegrating 4 mg PO Q6H PRN (Reason: nausea and vomiting) Qty: 14 0RF tamsulosin [Flomax] 0.4 mg capsule 0.4 mg PO DAILY Qty: 14 0RF No Action aspirin 81 mg tablet,delayed release (DR/EC) 81 mg PO DAILY nitroglycerin 0.4 mg tablet, sublingual 0.4 mg sublingual Q5M PRN (Reason: chest pain) 30 Days Qty: 30 3RF Rx Instructions: until response; do not exceed 3 doses per episode clopidogrel 75 mg tablet 75 mg PO DAILY 90 Days Qty: 90 4RF fenofibrate 54 mg tablet See Rx Instructions .ROUTE .COMPLEX Qty: 90 4RF Dose Instruction: Take 1 tablet by mouth once daily for 90 days Rx Instructions: Take 1 tablet by mouth once daily for 90 days losartan 50 mg tablet See Rx Instructions .ROUTE .COMPLEX Qty: 90 4RF Dose Instruction: Take 1 tablet by mouth once daily for 90 days Rx Instructions: Take 1 tablet by mouth once daily for 90 days lovastatin 10 mg tablet See Rx Instructions .ROUTE .COMPLEX 90 Days Qty: 90 4RF Dose Instruction: Take 1 tablet by mouth once daily Rx Instructions: Take 1 tablet by mouth once daily triamcinolone acetonide 0.1 % ointment 1 applic topical BID 10 Days Qty: 30 1RF metoprolol succinate 25 mg tablet extended release 24 hr See Rx Instructions .ROUTE .COMPLEX Qty: 180 4RF Dose Instruction: Take 1 tablet by mouth twice daily for 90 days Rx Instructions: Take 1 tablet by mouth twice daily for 90 days omeprazole 20 mg capsule,delayed release(DR/EC) 20 mg PO DAILY PRN (Reason: GERD) 30 Days Qty: 30 0RF Discharge Orders: Discharge ED (Routine); Ordered 12/26/24 Ordered By: Bolivar Manzanares Referrals: Aubrey Solis [Referring, Urology] - 4-7 days Sarthak Rivas FNP [Primary Care Provider, Family Practice] Patient Instructions: Kidney Stones (ED), Opioid Safety, Pain Management, Patient Portal & [place] Instructions Activity Restrictions/Additional Instructions: Medication as directed. Take Flomax daily to help you pass the stone. Call urology at the number above on Friday for a follow-up appointment. Drink plenty of clear liquids. Return for fever, vomiting liquids or medications, worsening pain despite treatment, other concerning symptoms. Print Language: Citizen Of [place] Coding Level of Care Code ED Passenger Train Braker for Tia Moore
[2024-12-26 03:57] VITALS: PULSE 61; RESP 16; O2SAT 98
--- NOTE | 2024-12-26 03:57 | PC.NURSE ---
upon entering to discharge pt, fluids were found on wall not infusing. pt declined staying for fluids prior to d/c.
== END 2024-12-26 03:59 | disposition home or self-care (01) ==
PROVIDERS: Emergency Provider Emergency Medicine; PCP Registered Nurse
DX: N20.9 Urinary calculus, unspecified (principal); Z87.442 Personal history of urinary calculi; Z79.82 Long term (current) use of aspirin; Z79.02 Long term (current) use of antithrombotics/antiplatelets; F17.220 Nicotine dependence, chewing tobacco, uncomplicated; I25.10 Atherosclerotic heart disease of native coronary artery without angina pectoris; I10 Essential (primary) hypertension; E78.2 Mixed hyperlipidemia
CPT/HCPCS: 36415; 74176; 80053; 81001; 83690; 85025; 86140; 87086; 96374; 96375; 99285; J1885; J2270; J2405; J7030

== ENCOUNTER → 2025-01-12 12:24 | Outpatient (BNVA) | payer MEDICARE, SELFPAY | PROVIDERS: PCP Registered Nurse; Visit Provider Internal Medicine Cardiovascular Disease | DX: I25.118 Atherosclerotic heart disease of native coronary artery with other forms of angina pectoris (principal); Z79.02 Long term (current) use of antithrombotics/antiplatelets; Z79.82 Long term (current) use of aspirin; E78.5 Hyperlipidemia, unspecified; I10 Essential (primary) hypertension; Z95.5 Presence of coronary angioplasty implant and graft; Z87.442 Personal history of urinary calculi; R07.9 Chest pain, unspecified | CPT/HCPCS: 93005; 99214 ==

== ENCOUNTER 2025-01-25 09:40 | Outpatient (CLI) | payer MEDICARE, SELFPAY ==
--- NOTE | 2025-01-25 10:05 | ECG_ITS ---
[facility] Date: 2025-01-25 Pat Name: Shantanu Reveles Department: Room: Gender: Male Emergency Department Rn: : 1955 Requested By: Laurie Hernandez Order Number: [id number] [place] MD: Laurie Hernandez M.D. Interpretive Statements Lung unchanged pre/post procedure; Intraprocedure shortess of breath; Symptoms resoled by discharge PROCEDURE: At the baseline, the patient's blood pressure was 153/87 with a heart rate of 69. The baseline electrocardiogram showed normal sinus rhythm with normal ST-Ts.. The patient exercised for 7 minutes and 4 seconds on a standard Yan protocol. Patient attained a maximum heart rate of 139 beats per minute(91% of the maximum predicted heart rate) with a blood pressure at the peak exercise of 205/82 mm Hg. The EKG at the peak exercise revealed no significant changes. Patient did not have any chest pain or any significant cardiac arrhythmias with the exercise During the recovery phase, there were no new changes. Blood pressure at the end of the recovery phase was 200/84 mm Hg with a heart rate of 82 per minute. CONCLUSION: 1. No significant EKG changes with the treadmill exercise 2. No exercise-induced chest pain or cardiac arrhythmia 3. Fair exercise tolerance, attained a maximum of 10.2 METs Electronically Signed On 01-28-2025 20:40:32 LABEL PRINTING MACHINIST by Laurie Hernandez M.D. [email or web address]
--- NOTE | 2025-01-25 10:05 | NMCV_ITS ---
NM kev perf SPECT r/s* [id number] Shantanu Reveles Age: 69 Gender: M : 1955 Exam Date: 01/25/2025 10:36 Ordering Phys: Laurie Hernandez MD ([email or web address]) Technologist: JIMMY Sprague Exam Location: [facility] Indications: CP STRESS TEST Please see separate stress test report in [facility] for full findings IMAGE PROTOCOL Rest/Stress 1 Radiopharmaceutical Dose (mCi) Administration Site Administered by Rest: Tc-99m 10.7 IV Negra Pritchett, BUSINESS PLANNING MANAGER Sestamibi Stress:Tc-99m 32.8 IV Negra Pritchett, BUSINESS PLANNING MANAGER Sestamibi Rest: 25-Jan-2025 60 Discovery 630 Stress: 25-Jan-2025 15 Discovery 630 Radiopharmaceutical was injected at 88 % maximum heart rate. Images obtained in supine and prone position. SPECT RESULTS Technical Quality: Good Raw Data Analysis: Normal Image Corrections: No attenuation or motion correction applied Summed Stress Score: 2 Summed Rest Score: 1 Summed Difference Score: 2 PERFUSION FINDINGS And small to moderate area of slightly decreased tracer uptake involving the mid inferior and mid inferolateral segments. Some reversibility was noted in this region FUNCTIONAL RESULTS (calculated via Gated SPECT) Stress Image LV EF (%): 68 Stress EDV (mL):87 TID: 0.88 Stress ESV (mL):28 FUNCTIONAL FINDINGS: Segmental wall motion analysis revealing no gross wall motion abnormalities IMPRESSIONS 1. Myocardial perfusion imaging revealing small to moderate area of minimal reversibility, suggesting ischemia in the distribution of the right coronary artery/circumflex artery 2. Normal LV ejection fraction of 68%. 3. LV wall motion analysis revealing no gross wall motion abnormalities. 4. Normal LV volume Compared to the study from 09/01/2023, the ischemic burden appears to be less Dr Laurie Hernandez MD [facility] (Electronically Signed) Final Date: 25 January 2025 15:31 S
[2025-01-25 10:07] VITALS: BMI 31.4
[2025-01-25 11:38] VITALS: BP 200/94; PULSE 83
== END 2025-01-25 09:41 | disposition home or self-care (01) ==
LOC: CDL 09:44
PROVIDERS: PCP Registered Nurse; Visit Provider Internal Medicine Cardiovascular Disease
DX: R07.9 Chest pain, unspecified (principal); I25.10 Atherosclerotic heart disease of native coronary artery without angina pectoris; R93.1 Abnormal findings on diagnostic imaging of heart and coronary circulation
CPT/HCPCS: 36415; 78452; 93017; 96374; A9500